=== PATIENT | male | born 1970 | race Caucasian/White ===

== ENCOUNTER → 2017-01-01 | Outpatient (CLI) | payer BC ==
[~2017-01-01] MED LIST: HYDR-5688 PO; IBUP-1050 PO; METH4PAK PO; NRN300 PO; OXYC-57 PO; PROM25TA PO
--- NOTE | 2017-01-01 10:32 | DIAGNOSTIC IMAGING REPORT ---
L-SPINE MIN 4 VIEWS ROUTINE CLINICAL HISTORY: Radiculopathy. COMPARISON: Lumbar spine MRI November 21, 2010. FINDINGS: Alignment of the lumbar spine is anatomic. Vertebral body heights are maintained. There is no fracture or suspicious lesion within the lumbar spine. There is moderate disc space narrowing with osteophytosis and vacuum disc phenomenon at L5-S1. There is mild multilevel facet arthrosis. IMPRESSION: 1. No acute lumbar spine fracture. 2. Moderate degenerative disc disease at L5-S1 with mild to moderate multilevel facet arthrosis. Electronically signed by: Delroy Alonzo M.D. 01/01/2017 10:30 AM Dictated Date/Time: 01/01/2017 10:29 AM
== END | disposition home or self-care (01) ==
LOC: C.RAD 10:00
PROVIDERS: ATTEND Nurse Practitioner Family
DX: M54.16 Radiculopathy, lumbar region (principal)

== ENCOUNTER 2017-02-14 06:57 | Observation (INO) | payer BC ==
[2017-02-14] VITALS (7 sets, daily range): BP systolic 109–130; BP diastolic 68–85; PULSE 53–65; TEMP 36.2–36.6; O2SAT 94–98; Ht 170.2 cm; Wt 83.0 kg
[~2017-02-14] VITALS: Ht 170.2 cm; Wt 83.0 kg
[~2017-02-14 06:57] MED LIST changes: -HYDR-5688 PO; -IBUP-1050 PO; -METH4PAK PO; -NRN300 PO
[2017-02-14] MEDS ORDERED: KETOROLAC TROMETHAMINE 30 MG/ML VIAL IV STA (07:18)
[2017-02-14] MEDS ORDERED: MoRPHine SULFATE 4 MG/ML 1 ML CARP\\VIAL IV STA (07:18)
[2017-02-14] MEDS ORDERED: ONDANSETRON INJ 2 MG/ML 2 ML VIAL IV STA (07:18)
[2017-02-14] MEDS ORDERED: IBUP-1050 PO (07:35)
--- NOTE | 2017-02-14 07:36 | EMERGENCY ROOM VISIT NOTE ---
History Report prepared by Licha: Leigha Ibrahim Under the Supervision of: Dr. Dhiraj Espino M.D. First contact with patient: 07:07 Chief Complaint: BACK PAIN Stated Complaint: BACK PAIN History of Present Illness The patient is a 46 year old male who presents to the Emergency Room with complaints of constant severe back pain beginning 1 month ago. The patient states that he has a history of back pain at L4-L5 and had his disc removed and cleaned previously. He reports that the pain was on the right before and is now on the left. He notes that the pain is now back and feels the same as it did before. The patient states that he has been dealing with this pain for about 1 month but it went away last week and returned yesterday worse than before. The patient reports that he has been following with his family doctor for this pain and has been taking Flexeril and ibuprofen along with going to physical therapy. He reports that his pain is worsened with sitting up and driving and he collapses intermittently with his back spasms. The patient denies any numbness, weakness, fever, incontinence, and abdominal pain. Source of History: patient Onset: 1 month ago Position: back (lower) Symptom Intensity: severe Quality: other (spasms) Timing: constant Modifying Factors (Worsening): other (sitting up and driving) Associated Symptoms: No fevers, No abdominal pain, No weakness, No numbness Note: The patient denies any incontinence. Review of Systems See HPI for pertinent positives & negatives. A total of 10 systems reviewed and were otherwise negative. Past Medical & Surgical Medical Problems: (1) HNP (herniated nucleus pulposus), lumbar (2) Hypertension Old medical records were reviewed. Nurse's notes were reviewed and I agree with. Family History No pertinent family history stated. Social History Smoking Status: Never Smoker Marital Status: Housing Status: lives with significant other Occupation Status: employed Current/Historical Medications Scheduled PRN Ibuprofen (Advil), 800 MG PO Q8 PRN for Pain Allergies Coded Allergies: NSAIDs (Verified Adverse Reaction, Unknown, NO NSAIDS PER DR ROSARIO AND [id number] ADM., 02/14/17) Physical Exam Vital Signs Date Time Temp Pulse Resp B/P (MAP) Pulse Ox O2 Delivery O2 Flow Rate FiO2 02/14/17 10:15 77 18 110/63 97 Room Air 02/14/17 08:15 88 18 137/74 96 Room Air 02/14/17 07:00 36.5 109 18 133/80 96 Room Air Physical Exam General: Uncomfortable appearing middle aged male complaining of back pain. HEENT: Normal cephalic atraumatic. Pupils are equal round and reactive to light. Extraocular movements are intact. Oropharynx is pink with moist mucous membranes. No swelling of the mouth lips or tongue. Neck: Supple with a midline trachea. No meningeal signs or stiffness, no JVD or bruits. No Stridor. Chest: Clear to auscultation bilaterally. No wheezes or rhonchi. No increased work of breathing. Heart: regular rate and rhythm. Abdomen: Soft nontender, nondistended without rebound guarding or rigidity. Extremities: No cyanosis clubbing or edema. No calf tenderness or assymetry Spine/Back. No CVA tenderness. Pain with movement of legs. Skin: Good turgor without rashes. Neurologic exam: Cranial nerves two through 12 are intact. Motor and sensation are intact and symmetrical throughout. Reflexes intact. Medical Decision & Procedures ER Provider Diagnostic Interpretation: Radiology results as stated below per my review and radiologist interpretation: LUMBAR SPINE W/O CONTRAST FINDINGS: Localizer images: Unremarkable. Normal lumbar lordosis. Vertebral bodies demonstrate normal height and alignment. Fatty endplate changes of L4-5 and L5-S1. No bony edema. Disc desiccation at L3-4 through L5-S1. Multilevel degenerative changes further detailed below: L1-2: Normal. L2-3: Disc bulge with central extrusion with slight caudal migration. No significant spinal canal or neural foraminal narrowing. L3-4: Normal. L4-5: Disc bulge with left paracentral disc extrusion with caudal migration. The disc fragment measures 10 x 7 mm. This effaces the left lateral recess with mass effect on the transiting left L5 nerve root. Disc bulge and facet arthropathy result in mild right and moderate left neural foraminal narrowing. L5-S1: Disc bulge abuts the exiting left L5 nerve root. In combination with facet arthropathy, mild right and moderate left neural foraminal narrowing noted. No significant spinal canal narrowing. Spinal cord ends in good position at the superior endplate of L1. Cauda equina normal in morphology. Paraspinal soft tissues within normal limits. IMPRESSION: 1. Left paracentral disc extrusion at L4-5 with caudal migration. This exerts mass effect on the transiting left L5 nerve root. Further mass effect on the left L5 nerve root at the level of the left L5-S1 neural foramen secondary to disc bulge and facet arthropathy. 2. Smaller central disc extrusion with caudal migration at L2-3. No significant mass effect on the nerve roots at this level. 3. Additional degenerative changes above. Electronically signed by: Ganesh Almanzar M.D. 02/14/2017 10:26 AM Dictated Date/Time: 02/14/2017 10:18 AM ORBITS FOR MRI FINDINGS: No radiopaque foreign body projects over the orbits. Bony orbits grossly intact. Paranasal sinuses grossly clear. Visualized portion of the calvarium intact. IMPRESSION: No intraorbital metallic foreign body to preclude MRI exam. Electronically signed by: Ganesh Almanzar M.D. 02/14/2017 8:17 AM Dictated Date/Time: 02/14/2017 8:17 AM Laboratory Results 02/14/17 07:35 Red Blood Count 4.66, Mean Corpuscular Volume 89.7, Mean Corpuscular Hemoglobin 30.7, Mean Corpuscular Hemoglobin Concent 34.2, Mean Platelet Volume 9.7, Neutrophils (%) (Auto) 76.0, Lymphocytes (%) (Auto) 13.5, Monocytes (%) (Auto) 7.5, Eosinophils (%) (Auto) 2.6, Basophils (%) (Auto) 0.3, Neutrophils # (Auto) 5.56, Lymphocytes # (Auto) 0.99, Monocytes # (Auto) 0.55, Eosinophils # (Auto) 0.19, Basophils # (Auto) 0.02 02/14/17 07:35 Test 02/14/17 07:35 White Blood Count 7.32 K/uL (4.8-10.8) Red Blood Count 4.66 M/uL (4.7-6.1) Hemoglobin 14.3 g/dL (14.0-18.0) Hematocrit 41.8 % (42-52) Mean Corpuscular Volume 89.7 fL (80-100) Mean Corpuscular Hemoglobin 30.7 pg (25-34) Mean Corpuscular Hemoglobin Concent 34.2 g/dl (32-36) Platelet Count 238 K/uL (130-400) Mean Platelet Volume 9.7 fL (7.4-10.4) Neutrophils (%) (Auto) 76.0 % Lymphocytes (%) (Auto) 13.5 % Monocytes (%) (Auto) 7.5 % Eosinophils (%) (Auto) 2.6 % Basophils (%) (Auto) 0.3 % Neutrophils # (Auto) 5.56 K/uL (1.4-6.5) Lymphocytes # (Auto) 0.99 K/uL (1.2-3.4) Monocytes # (Auto) 0.55 K/uL (0.11-0.59) Eosinophils # (Auto) 0.19 K/uL (0-0.5) Basophils # (Auto) 0.02 K/uL (0-0.2) RDW Standard Deviation 42.1 fL (36.4-46.3) RDW Coefficient of Variation 12.8 % (11.5-14.5) Immature Granulocyte % (Auto) 0.1 % Immature Granulocyte # (Auto) 0.01 K/uL (0.00-0.02) Anion Gap 7.0 mmol/L (3-11) Est Creatinine Clear Calc Drug Dose 93.6 ml/min Estimated GFR () 103.4 Estimated GFR (Non- 89.2 BUN/Creatinine Ratio 10.1 (10-20) Calcium Level 9.2 mg/dl (8.5-10.1) Laboratory studies as stated above per my review. Medications Administered Medications (Trade) Dose Ordered Sig/Adonay Route Start Time Stop Time Status Last Admin Dose Admin Ketorolac Tromethamine (Toradol Inj) 30 mg NOW STAT IV 02/14/17 07:18 02/14/17 07:21 DC 02/14/17 07:41 30 MG Ondansetron HCl (Zofran Inj) 4 mg NOW STAT IV 02/14/17 07:18 02/14/17 07:21 DC 02/14/17 07:41 4 MG Morphine Sulfate (MoRPHine SULFATE INJ) 4 mg NOW STAT IV 02/14/17 07:18 02/14/17 07:21 DC 02/14/17 07:40 4 MG Hydromorphone HCl (Dilaudid Inj) 1 mg NOW STAT IV 02/14/17 10:33 02/14/17 10:34 DC 02/14/17 11:17 1 MG Hydromorphone HCl (Dilaudid Chief Analytics Officer) Dilaudid FABRICATION SPECIALIST 0.25 mg IV q... PRN PRN IV 02/14/17 11:15 02/14/17 15:05 DC 02/14/17 14:56 0.25 MG Lactated Ringer's 1,000 ml @ 40 mls/hr Q24H IV 02/14/17 11:15 02/14/17 15:05 DC 02/14/17 13:29 40 MLS/HR ED Course 0707: Past medical records reviewed. The patient was evaluated in room B12B, and a complete history and physical examination were performed. 0718: Morphine Sufate 4mg IV, Zofran Inj 4mg IV, Toradol Inj 30mg IV. 1033: Dilaudid Inj 1mg IV. 1044: I spoke to Kiana Zarate PA-C about the patients case. She will call me back. 1052: I reevaluated and updated the patient. He is still in pain and does not think that he can go home. 1101: I spoke to Kiana Zarate PA-C. She will evaluate the patient. 1116: Upon reevaluation, the patient is doing well. I discussed the results and treatment plan with the patient. He verbalized agreement of the treatment plan. The patient will be evaluated for further management. Medical Decision Differentials include, but are not limited to; lumbar disc disease, trauma, infection, electrolyte or metabolic abnormality. This patient comes in as described above. Placed in room B12. He is having low back pain readouts left leg he has a history having had disc [place] [address] Rosario that was causing pain in his right leg. This is been off about a month but got significantly worse overnight. He's had no fever or chills. He has nothing to suggest cauda equina syndrome. He has significant pain with movement of the left leg. There are no significant neurologic deficits. IV access established was given IV Toradol 30 mg, morphine 4 mg IV, Zofran 4 mg IV. Although NSAIDs are listed as allergies had these before and has been taking them all week and thus is not allergic. Blood work was obtained and I did order an MRI of his back. He has no white count or fever to suggest infection. He has no acute electrolyte or metabolic abnormalities. He did require additional IV pain medication was given a milligram of IV Dilaudid. His MRI does show a large disc protrusion on the left compromise in the lateral foramen on that side. I did discuss the case with Dr. Marlene Mosley's PA. I do think the patient needs to be admitted for pain management and possibly surgery. She has called in some orders and will admit the patient. Medication Reconcilliation Current Medication List: was personally reviewed by me Blood Pressure Screening Patient's blood pressure: Elevated blood pressure Blood pressure disposition: Elevated BP felt to be situational Consults Time Called: 1055 Consulting Physician: Kiana Zarate PA-C - [facility] Returned Call: 1101 I spoke to Kiana Zarate PA-C of [facility]. She will evaluate the patient. Impression Primary Impression: Lumbar disc disease Additional Impressions: Sciatica Intractable back pain Scribe Attestation The scribe's documentation has been prepared under my direction and personally reviewed by me in its entirety. I confirm that the note above accurately reflects all work, treatment, procedures, and medical decision making performed by me. Departure Information Referrals Yesika Wells C.R.N.P. (PCP) Patient Instructions My [facility] Problem Qualifiers
[2017-02-14 08:05] LABS: BASO % 0.3 %; BASO ABS # 0.02 K/uL (0-0.2); COMPLETE YES; EOS % 2.6 %; HEMATOCRIT 41.8 % (42-52); IG% 0.1 %; LYMPH % 13.5 %; LYMPH ABS # 0.99 K/uL (1.2-3.4); MEAN CELL VOLUME 89.7 fL (80-100); MEAN CORPUSCULAR HEMOGLOBIN 30.7 pg (25-34); MEAN CORPUSCULAR HGB CONC 34.2 g/dl (32-36); MEAN PLATELET VOLUME 9.7 fL (7.4-10.4); MONO % 7.5 %; PLATELET COUNT 238 K/uL (130-400); RED BLOOD COUNT 4.66 M/uL (4.7-6.1); WHITE BLOOD COUNT 7.32 K/uL (4.8-10.8)
[2017-02-14 08:08] LABS: BUN/CREATININE RATIO 10.1 (10-20); CALCIUM 9.2 mg/dl (8.5-10.1); POTASSIUM 3.9 mmol/L (3.5-5.1)
--- NOTE | 2017-02-14 08:19 | DIAGNOSTIC IMAGING REPORT ---
ORBITS FOR MRI CLINICAL HISTORY: 46 years-old Male presenting with MRI clearance of the orbits. TECHNIQUE: 3 views of the orbits were obtained. COMPARISON: None. FINDINGS: No radiopaque foreign body projects over the orbits. Bony orbits grossly intact. Paranasal sinuses grossly clear. Visualized portion of the calvarium intact. IMPRESSION: No intraorbital metallic foreign body to preclude MRI exam. Electronically signed by: Ganesh Almanzar M.D. 02/14/2017 8:17 AM Dictated Date/Time: 02/14/2017 8:17 AM
--- NOTE | 2017-02-14 10:27 | DIAGNOSTIC IMAGING REPORT ---
LUMBAR SPINE W/O CONTRAST CLINICAL HISTORY: 46 years-old Male presenting with eval for disc disease, lower back pain radiating to the left lower extremity. TECHNIQUE: Multisequence, multiplanar MR imaging of the lumbar spine was performed without the use of intravenous contrast. IV contrast: None. COMPARISON: Plain radiographs of the lumbar spine from 01/01/2017. FINDINGS: Localizer images: Unremarkable. Normal lumbar lordosis. Vertebral bodies demonstrate normal height and alignment. Fatty endplate changes of L4-5 and L5-S1. No bony edema. Disc desiccation at L3-4 through L5-S1. Multilevel degenerative changes further detailed below: L1-2: Normal. L2-3: Disc bulge with central extrusion with slight caudal migration. No significant spinal canal or neural foraminal narrowing. L3-4: Normal. L4-5: Disc bulge with left paracentral disc extrusion with caudal migration. The disc fragment measures 10 x 7 mm. This effaces the left lateral recess with mass effect on the transiting left L5 nerve root. Disc bulge and facet arthropathy result in mild right and moderate left neural foraminal narrowing. L5-S1: Disc bulge abuts the exiting left L5 nerve root. In combination with facet arthropathy, mild right and moderate left neural foraminal narrowing noted. No significant spinal canal narrowing. Spinal cord ends in good position at the superior endplate of L1. Cauda equina normal in morphology. Paraspinal soft tissues within normal limits. IMPRESSION: 1. Left paracentral disc extrusion at L4-5 with caudal migration. This exerts mass effect on the transiting left L5 nerve root. Further mass effect on the left L5 nerve root at the level of the left L5-S1 neural foramen secondary to disc bulge and facet arthropathy. 2. Smaller central disc extrusion with caudal migration at L2-3. No significant mass effect on the nerve roots at this level. 3. Additional degenerative changes above. Electronically signed by: Ganesh Almanzar M.D. 02/14/2017 10:26 AM Dictated Date/Time: 02/14/2017 10:18 AM
[2017-02-14] MEDS ORDERED: HYDROmorphone INJ 1 MG/ML SYR IV STA (10:33)
[2017-02-14] MEDS ORDERED: ONDANSETRON INJ 2 MG/ML 2 ML VIAL IV PRN ×2 (11:15→17:15)
[2017-02-14] MEDS: HYDROmorphone HCL 0.5MG/ML 50 ML CASSETTE IV PRN ×3 (13:29→23:18)
[2017-02-14] MEDS: LACTATED RINGER'S 1000ML 1,000 ML IV SCH (13:29)
--- NOTE | 2017-02-14 15:03 | History and Physical ---
History & Physical Date & Time of Service: Feb 14, 2017 at 14:57 Chief Complaint: Herniated Nucleus Pulposus Lumbar Spine Primary Care Physician: Yesika Wells C.R.N.P. History of Present Illness Source: patient The 46-year-old male well known to our practice. He is status post laminectomy from [address] Rosario. He presents to the emergency room today because of increased back and left leg pain. He states his symptoms started a month ago. No precipitating accident trauma or fall. His pain involves the back raised on the left buttock posterior thigh posterior calf to his foot. Right leg is asymptomatic. Denies bowel or bladder changes. Sitting exacerbates his pain. He is most comfortable sling as he is up and moving. He reports he has trialed physical therapy without relief. He was given oral steroids without relief. He had to tramadol and Flexeril again which were not providing any significant relief. Past Medical/Surgical History Medical Problems: (1) Hypertension Status: Chronic Social History Smoking Status: Never Smoker Marital Status: Occupational Status: employed Immunizations History of Influenza Vaccine: Yes Influenza Vaccine Date: Mar 13, 2008 History of Tetanus Vaccine?: Unknown Tetanus Immunization Date: Jun 30, 2002 History of Pneumococcal: No History of Hepatitis B Vaccine: Yes Hepatitis Immunization Date: Jul 28, 2001 Multi-Drug Resistant Organisms History of MDRO: No Allergies Coded Allergies: NSAIDs (Verified Adverse Reaction, Unknown, NO NSAIDS PER DR ROSARIO AND [id number] ADM., 02/14/17) Home Medications Scheduled PRN Ibuprofen (Advil), 800 MG PO Q8 PRN for Pain Review of Systems Back pain Left leg pain Physical Exam Vital Signs Date Time Temp Pulse Resp B/P (MAP) Pulse Ox O2 Delivery O2 Flow Rate FiO2 02/14/17 13:33 36.4 55 18 121/74 (90) 96 Room Air 02/14/17 13:05 Room Air 02/14/17 12:41 36.6 60 18 130/73 (92) 94 Room Air 02/14/17 12:00 60 20 125/73 95 Room Air 02/14/17 11:19 87 20 125/73 97 Room Air 02/14/17 10:15 77 18 110/63 97 Room Air 02/14/17 08:15 88 18 137/74 96 Room Air 02/14/17 07:00 36.5 109 18 133/80 96 Room Air General Appearance: WD/WN, no apparent distress Head: normocephalic Eyes: normal inspection ENT: normal ENT inspection, hearing grossly normal Neck: supple Respiratory/Chest: no respiratory distress, no accessory muscle use Cardiovascular: regular rate, rhythm Abdomen/GI: non tender, soft Back: normal inspection Extremities/Musculoskelatal: no calf tenderness, normal capillary refill, normal range of motion, pelvis stable Neurologic/Psych: no motor/sensory deficits, oriented x 3 Skin: normal color, warm/dry Lymphatic: no adenopathy Lower extremity neuro vascular intact. Positive tension sign on the left. Negative on the right. Diagnostics Laboratory Results Results Past 24 Hours Test 02/14/17 07:35 Range/Units White Blood Count 7.32 4.8-10.8 K/uL Red Blood Count 4.66 4.7-6.1 M/uL Hemoglobin 14.3 14.0-18.0 g/dL Hematocrit 41.8 42-52 % Mean Corpuscular Volume 89.7 80-100 fL Mean Corpuscular Hemoglobin 30.7 25-34 pg Mean Corpuscular Hemoglobin Concent 34.2 32-36 g/dl Platelet Count 238 130-400 K/uL Mean Platelet Volume 9.7 7.4-10.4 fL Neutrophils (%) (Auto) 76.0 % Lymphocytes (%) (Auto) 13.5 % Monocytes (%) (Auto) 7.5 % Eosinophils (%) (Auto) 2.6 % Basophils (%) (Auto) 0.3 % Neutrophils # (Auto) 5.56 1.4-6.5 K/uL Lymphocytes # (Auto) 0.99 1.2-3.4 K/uL Monocytes # (Auto) 0.55 0.11-0.59 K/uL Eosinophils # (Auto) 0.19 0-0.5 K/uL Basophils # (Auto) 0.02 0-0.2 K/uL RDW Standard Deviation 42.1 36.4-46.3 fL RDW Coefficient of Variation 12.8 11.5-14.5 % Immature Granulocyte % (Auto) 0.1 % Immature Granulocyte # (Auto) 0.01 0.00-0.02 K/uL Sodium Level 140 136-145 mmol/L Potassium Level 3.9 3.5-5.1 mmol/L Chloride Level 108 98-107 mmol/L Carbon Dioxide Level 25 21-32 mmol/L Anion Gap 7.0 3-11 mmol/L Blood Urea Nitrogen 10 7-18 mg/dl Creatinine 1.00 0.60-1.40 mg/dl Est Creatinine Clear Calc Drug Dose 93.6 ml/min Estimated GFR () 103.4 Estimated GFR (Non- 89.2 BUN/Creatinine Ratio 10.1 10-20 Random Glucose 101 70-99 mg/dl Calcium Level 9.2 8.5-10.1 mg/dl Diagnostic Radiology Patient Name: LANCE CARPENTER II Unit Number: [id number] Dictated: 02/14/171017 Transcribed: 02/14/171017 PBS Printed Date/Time: [~ rep prt dt]/[~ rep prt tm] [~ rep ct labl] - [~ rep ct ivnm] [facility] [place] [address] Dictated: 02/14/171017 Transcribed: 02/14/171017 PBS Printed Date/Time: [~ rep prt dt]/[~ rep prt tm] [~ rep ct labl] - [~ rep ct ivnm] Patient: LANCE CARPENTER II Address1: [address] [place] [address] Rec: [id number] Address2: Acct ID: [id number] [facility] Zip: [place] [address] Date: 1970 Sex: M Room/Bed: Ref Phy: Yesika Wells, C.R.N.P. SC: GABRIELE Att Phy: Report #: [id number] [facility] Phy: Yesika Wells, C.R.N.P. Test: LSWOC Admit Phy: Multi Slide Machine Tender: BREANA Interpreting Phy: Ganesh Almanzar MD Diagnosis: BACK PAIN Ordering Phy: Dhiraj Espino M.D. Service Date: 02/14/17 Admit Date: 02/14/17 MNE: [id number] CONF: DICTATED BY: Ganesh Almanzar MD]] CC: Dhiraj Espino M.D. Schrack, Shari A., C.R.N.P. Endcc: [~ rep ct add3]] LUMBAR SPINE W/O CONTRAST CLINICAL HISTORY: 46 years-old Male presenting with eval for disc disease, lower back pain radiating to the left lower extremity. TECHNIQUE: Multisequence, multiplanar MR imaging of the lumbar spine was performed without the use of intravenous contrast. IV contrast: None. COMPARISON: Plain radiographs of the lumbar spine from 01/01/2017. FINDINGS: Localizer images: Unremarkable. Normal lumbar lordosis. Vertebral bodies demonstrate normal height and alignment. Fatty endplate changes of L4-5 and L5-S1. No bony edema. Disc desiccation at L3-4 through L5-S1. Multilevel degenerative changes further detailed below: L1-2: Normal. L2-3: Disc bulge with central extrusion with slight caudal migration. No significant spinal canal or neural foraminal narrowing. L3-4: Normal. L4-5: Disc bulge with left paracentral disc extrusion with caudal migration. The disc fragment measures 10 x 7 mm. This effaces the left lateral recess with mass effect on the transiting left L5 nerve root. Disc bulge and facet arthropathy result in mild right and moderate left neural foraminal narrowing. L5-S1: Disc bulge abuts the exiting left L5 nerve root. In combination with facet arthropathy, mild right and moderate left neural foraminal narrowing noted. No significant spinal canal narrowing. Spinal cord ends in good position at the superior endplate of L1. Cauda equina normal in morphology. Paraspinal soft tissues within normal limits. IMPRESSION: 1. Left paracentral disc extrusion at L4-5 with caudal migration. This exerts mass effect on the transiting left L5 nerve root. Further mass effect on the left L5 nerve root at the level of the left L5-S1 neural foramen secondary to disc bulge and facet arthropathy. 2. Smaller central disc extrusion with caudal migration at L2-3. No significant mass effect on the nerve roots at this level. 3. Additional degenerative changes above. Electronically signed by: Ganesh Almanzar M.D. 02/14/2017 10:26 AM Dictated Date/Time: 02/14/2017 10:18 AM The status of this report is Signed. Draft = Not yet reviewed or approved by Radiologist. Signed = Reviewed and approved by Radiologist. <AttendingPhy></AttendingPhy> <FamilyPhy>Yesika Wells C.R.NGrupo</FamilyPhy> <PrimaryPhy>Yesika Wells C.R.N.P.</PrimaryPhy> <UnitNumber>[id number]</ UnitNumber> <VisitNumber>[id number]</VisitNumber> <PatientName>LANCE CARPENTER II</PatientName> <DateOfBirth>1970</DateOfBirth> <Location>[facility]</Location > <ServiceDate>02/14/17</ServiceDate> <MNE>ESINDI</MNE> <OrderingPhy>Dhiraj Espino M.D.</OrderingPhy> <OrderingPhyMNE>f rep ord dr yun</OrderingPhyMNE> < DictatingPhyMNE>f rep dict dr yun</DictatingPhyMNE> <CCListMNE>f rep ct mynore</ CCListMNE> <AdmittingPhyMNE>f pt admit dr yun</AdmittingPhyMNE> <AttendingPhyMNE >f pt attend dr yun</AttendingPhyMNE> <ConsultingPhyMNE>f pt consult dr yun</ConsultingPhyMNE> <FamilyPhyMNE>f pt fam dr yun</FamilyPhyMNE> <OtherPhyMNE>f pt other dr yun</OtherPhyMNE> < PrimaryPhyMNE>f pt prim care dr yun</PrimaryPhyMNE> <ReferringPhyMNE>f pt referring dr yun</ReferringPhyMNE> Impression Assessment and Plan Assessment: HNP L4 5 on the left Significant degenerative disc disease L5-S1 Broad based disc bulge L5-S1 Neural foraminal stenosis L4 5, L5-S1 left greater than right Plan patient felt he was unable to go home because of his pain. He was therefore admitted to Dr. Rosario service through the emergency room. Options were reviewed with the patient including pain management injections versus surgical intervention. Surgery would require lumbar decompression fusion L4 5, L5-S1. At this point in time patient wants to trial epidural injections. I will make him nothing by mouth after midnight. We will consult the pain management group.: Level of Care Med/Surg Advanced Directives Existing Living Will: No Existing Power of Shredder Tender Peat: No VTE Prophylaxis VTE Risk Assessment Done? Y/N: Yes Risk Level: Low Given or contraindicated: Kenyatta Andrade, SCD's
[2017-02-14] MEDS ORDERED: IV FLUIDS COMPLETED PRN (15:30)
[2017-02-14] MEDS ORDERED: NURSING VERBAL MED ORDER ONE (17:00)
[2017-02-14] MEDS ORDERED: SODIUM CHLORIDE 0.9% 1000ML 1,000 ML IV SCH (17:15)
[2017-02-14] MEDS ORDERED: NALOXONE HCL 0.4 MG/1 ML VIAL/CARP IV PRN (17:15)
--- NOTE | 2017-02-14 17:22 | Medical Consult ---
Consultation Date of Consultation: Feb 14, 2017. Attending Physician: Bay Rosario D.O. Reason for Consultation: Pre-op assessment History of Present Illness 46 y/o M who was admitted earlier today to ortho service for likely laminectomy. Pt had been having worsening LBP with radiation into his LLE for about 1 month. Nothing seems to be helping his pain so he came to the ED. He has hx of laminectomy with Dr. Rosario in 2010. No accident or fall. Right leg is WNL. No bowel or bladder changes. Pain is worse with sitting and improves somewhat with moving around. Pt has attempted conservative management with PT, PO steroids, tramadol, and flexeril. Pt states that other than his pain issue, he is in good health. HTN is listed in the EHR, however pt denies any hx of HTN or medication for this issue. He used to have CHRISTY, however he was able to lose 55-60lbs and this is no longer an active health problem. He takes no medications. 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 He has been somewhat limited by his back pain, but no issues with SOB or chest pain or easily fatiguing. His states "he is always on the go". He states he can take multiple flights of stairs without issue. He had no issues with his prior surgery in 2010. Pt denies fever, SOB, chest pain, abd pain, n/v/c/d, LE pain or swelling. Past Medical/Surgical History Medical Problems: (1) Intractable back pain Status: Acute (2) Lumbar disc disease Status: Acute (3) Sciatica Status: Acute CHRISTY resolved with weight loss Family History Father hx of [place] x4 Social History Smoking Status: Never Smoker Alcohol Use: none Drug Use: none Marital Status: Housing Status: lives with significant other Occupation Status: employed Allergies Coded Allergies: NSAIDs (Verified Adverse Reaction, Unknown, NO NSAIDS PER DR ROSARIO AND [id number] ADM., 02/14/17) Current Inpatient Medications Current Inpatient Medications Medications (Trade) Dose Ordered Sig/Adonay Route Start Time Stop Time Status Last Admin Dose Admin Hydromorphone HCl (Dilaudid Clinical Education Specialist) Dilaudid CHEMICAL PROCESS ENGINEER 0.25 mg IV q... PRN PRN IV 02/14/17 11:15 02/28/17 11:14 02/14/17 14:56 0.25 MG Lactated Ringer's 1,000 ml @ 40 mls/hr Q24H IV 02/14/17 11:15 03/16/17 11:14 02/14/17 13:29 40 MLS/HR Docusate Sodium (coLACE CAP) 100 mg BID PO 02/14/17 21:00 03/16/17 20:59 Cefazolin Sodium 60 ml @ 100 mls/hr PREOP IV 02/15/17 06:00 02/15/17 18:00 Miscellaneous (Iv Fluids Completed) 1 ea PRN PRN N/A 02/14/17 15:30 02/14/18 15:29 Ondansetron HCl (Zofran Inj) 4 mg Q6H PRN IV 02/14/17 17:15 03/16/17 17:14 Naloxone HCl (Narcan Inj) 0.1 mg Q5M PRN IV 02/14/17 17:15 02/28/17 17:14 Sodium Chloride 1,000 ml @ 15 mls/hr Q24H IV 02/14/17 17:15 03/16/17 17:14 Review of Systems Pertinent positives and negatives reviewed in HPI--all others negative Physical Exam Date Time Temp Pulse Resp B/P (MAP) Pulse Ox O2 Delivery O2 Flow Rate FiO2 02/14/17 15:24 36.2 53 16 120/85 (97) 94 Room Air 02/14/17 14:30 36.5 59 17 117/78 (91) 98 Room Air 02/14/17 13:33 36.4 55 18 121/74 (90) 96 Room Air 02/14/17 13:05 Room Air 02/14/17 12:41 36.6 60 18 130/73 (92) 94 Room Air 02/14/17 12:00 60 20 125/73 95 Room Air 02/14/17 11:19 87 20 125/73 97 Room Air 02/14/17 10:15 77 18 110/63 97 Room Air 02/14/17 08:15 88 18 137/74 96 Room Air 02/14/17 07:00 36.5 109 18 133/80 96 Room Air General Appearance: WD/WN, no apparent distress Head: normocephalic, atraumatic Eyes: normal inspection, EOMI ENT: hearing grossly normal Neck: supple Respiratory/Chest: normal breath sounds, no respiratory distress Cardiovascular: regular rate, rhythm, no edema Abdomen/GI: non tender, soft Extremities/Musculoskelatal: no calf tenderness, no pedal edema Neurologic/Psych: alert, normal mood/affect, oriented x 3 Skin: normal color, warm/dry Laboratory Results Last 24 Hours Test 02/14/17 07:35 White Blood Count 7.32 K/uL Red Blood Count 4.66 M/uL Hemoglobin 14.3 g/dL Hematocrit 41.8 % Mean Corpuscular Volume 89.7 fL Mean Corpuscular Hemoglobin 30.7 pg Mean Corpuscular Hemoglobin Concent 34.2 g/dl Platelet Count 238 K/uL Mean Platelet Volume 9.7 fL Neutrophils (%) (Auto) 76.0 % Lymphocytes (%) (Auto) 13.5 % Monocytes (%) (Auto) 7.5 % Eosinophils (%) (Auto) 2.6 % Basophils (%) (Auto) 0.3 % Neutrophils # (Auto) 5.56 K/uL Lymphocytes # (Auto) 0.99 K/uL Monocytes # (Auto) 0.55 K/uL Eosinophils # (Auto) 0.19 K/uL Basophils # (Auto) 0.02 K/uL RDW Standard Deviation 42.1 fL RDW Coefficient of Variation 12.8 % Immature Granulocyte % (Auto) 0.1 % Immature Granulocyte # (Auto) 0.01 K/uL Sodium Level 140 mmol/L Potassium Level 3.9 mmol/L Chloride Level 108 mmol/L Carbon Dioxide Level 25 mmol/L Anion Gap 7.0 mmol/L Blood Urea Nitrogen 10 mg/dl Creatinine 1.00 mg/dl Est Creatinine Clear Calc Drug Dose 93.6 ml/min Estimated GFR () 103.4 Estimated GFR (Non- 89.2 BUN/Creatinine Ratio 10.1 Random Glucose 101 mg/dl Calcium Level 9.2 mg/dl Assessment & Plan 46 y/o M who was admitted on 02/14 for spinal surgery Herniated discs: as noted on MRI As per ortho Failed outpt management EKG NSR CXR pending CBC, PRP WNL VSS Pt is quite healthy and active at baseline. He is an acceptable risk for the OR.
--- NOTE | 2017-02-14 17:31 | DIAGNOSTIC IMAGING REPORT ---
CHEST 2 VIEWS ROUTINE CLINICAL HISTORY: 46 years-old Male presenting with pre-op. TECHNIQUE: PA and lateral views of the chest were obtained. COMPARISON: 04/13/2016. FINDINGS: Cardiomediastinal silhouette normal. Lungs and pleural spaces clear. Osseous structures normal. Upper abdomen normal. IMPRESSION: 1. No acute cardiopulmonary disease. Electronically signed by: Ganesh Almanzar M.D. 02/14/2017 5:30 PM Dictated Date/Time: 02/14/2017 5:29 PM
[2017-02-14] MEDS: DOCUSATE SODIUM 100 MG CAP PO SCH (20:01)
[2017-02-15] MEDS ORDERED: CEFAZOLIN IV 1,000 MG in DEXTROSE 5% 50ML 50 ML IV SCH (06:00)
[2017-02-15] MEDS ORDERED: CEFAZOLIN 2000 MG/60 ML D5W IV SCH (06:00)
[2017-02-15 07:12] VITALS: BP 116/69; PULSE 67; TEMP 36.7; O2SAT 96
[2017-02-15] MEDS: HYDROmorphone HCL 0.5MG/ML 50 ML CASSETTE IV PRN (07:18)
[2017-02-15] MEDS ORDERED: METHYLPREDNISOLONE 4MG TAB, 6 DAY TAPER PO SCH (08:15)
[2017-02-15] MEDS: DOCUSATE SODIUM 100 MG CAP PO SCH (08:59)
--- NOTE | 2017-02-15 09:43 | Pain Management Consultation ---
Pain Management Consultation Date of Consultation Feb 15, 2017. Reason for Consultation Evaluate for interventional procedure for lumbar radiculitis. Pain Location 1 - Left leg radicular pain. History Mr. Sean Sibley II is a 46-year-old male admitted to [facility] for experiencing left lower extremity radicular symptoms. He has undergone previous lumbar spine surgery and was symptom free up until recently. He reports that without any specific inciting event, he started experiencing left leg pain. He characterizes the pain as burning sensation that starts from the left buttock and radiates into the left posterior lateral aspect of his distal legs up to the ankle. He rates the pain is 8/10 when severe and 2/10 when minimal. He is bright with pain-free when he is standing up and ambulating or when he is laying in supine immobile position. However, when he attempts to sit up or leans forward, he experiences burning sensation all the way down to his left ankle. Symptoms occur with activities request daily living. Prior to his arriving to the emergency room, he had used tramadol and OTC anti- inflammatory agents as well as Flexeril with minimal efficacy. Currently he is getting IV hydromorphone, but has used minimal dosages so far. He denies any bowel or bladder incontinence, saddle anesthesia, numbness or weakness in the left lower extremity. Denies any constitutional symptoms, recent weight loss, or previous history malignancy. He was evaluated by orthopedic spine surgery service and her request was made to consider interventional therapy prior to considering surgery. Past Medical: Hypertension. History of lumbar disc disease and radicular pain. Past Surgical: History lumbar spine surgery. Social / Work History Smokeless Tobacco Use: No Alcohol Use: none Drug Use: none Marital Status: Occupation: employed Allergies Coded Allergies: NSAIDs (Verified Adverse Reaction, Unknown, NO NSAIDS PER DR WERNER AND [id number] ADM., 02/14/17) Medications Current Inpatient Medications Medications (Trade) Dose Ordered Sig/Adonay Route Start Time Stop Time Status Last Admin Dose Admin Hydromorphone HCl (Dilaudid Captain Fishing Vessel) Dilaudid COMPOUNDING TECHNICIAN 0.25 mg IV q... PRN PRN IV 02/14/17 11:15 02/28/17 11:14 02/15/17 07:18 0.25 MG Lactated Ringer's 1,000 ml @ 40 mls/hr Q24H IV 02/14/17 11:15 03/16/17 11:14 02/14/17 13:29 40 MLS/HR Docusate Sodium (coLACE CAP) 100 mg BID PO 02/14/17 21:00 03/16/17 20:59 02/14/17 20:01 100 MG Cefazolin Sodium 60 ml @ 100 mls/hr PREOP IV 02/15/17 06:00 02/15/17 18:00 Miscellaneous (Iv Fluids Completed) 1 ea PRN PRN N/A 02/14/17 15:30 02/14/18 15:29 Ondansetron HCl (Zofran Inj) 4 mg Q6H PRN IV 02/14/17 17:15 03/16/17 17:14 02/14/17 17:23 4 MG Naloxone HCl (Narcan Inj) 0.1 mg Q5M PRN IV 02/14/17 17:15 02/28/17 17:14 Sodium Chloride 1,000 ml @ 15 mls/hr Q24H IV 02/14/17 17:15 03/16/17 17:14 Review of Systems Denies any recent history of fever, night sweats, unexplained weight loss, or constitutional symptoms. Otherwise, 8 point review of system has been reported to be negative. Physical Exam Height & Weight: Height 5 feet, 7.00 inches. Weight 83.000 (Kilograms) 182 (Pounds) Last Vital Signs Documentation Date Time Temp Pulse Resp B/P (MAP) Pulse Ox O2 Delivery O2 Flow Rate FiO2 02/15/17 07:12 36.7 67 14 116/69 (85) 96 Room Air Laboratory Laboratory Results (Last CBC): 02/14/17 07:35 Red Blood Count 4.66 L, Mean Corpuscular Volume 89.7, Mean Corpuscular Hemoglobin 30.7, Mean Corpuscular Hemoglobin Concent 34.2, Mean Platelet Volume 9.7, Neutrophils (%) (Auto) 76.0, Lymphocytes (%) (Auto) 13.5, Monocytes (%) ( Auto) 7.5, Eosinophils (%) (Auto) 2.6, Basophils (%) (Auto) 0.3, Neutrophils # ( Auto) 5.56, Lymphocytes # (Auto) 0.99 L, Monocytes # (Auto) 0.55, Eosinophils # (Auto) 0.19, Basophils # (Auto) 0.02 Imaging MRI: reports reviewed MRI Findings IMPRESSION: 1. Left paracentral disc extrusion at L4-5 with caudal migration. This exerts mass effect on the transiting left L5 nerve root. Further mass effect on the left L5 nerve root at the level of the left L5-S1 neural foramen secondary to disc bulge and facet arthropathy. 2. Smaller central disc extrusion with caudal migration at L2-3. No significant mass effect on the nerve roots at this level. 3. Additional degenerative changes above. Electronically signed by: Ganesh Almanzar M.D. 02/14/2017 10:26 AM Dictated Date/Time: 02/14/2017 10:18 AM [place] Drug Monitoring Program Search Results: patient reviewed within database, no issues identified Opioid Risk Assessment Risk assessment performed, no issues identified Assessment 1. Individual disc disorder with left lower extremity radicular pain. L4/L5 disc protrusion Recommendations 1. Mr. Sibley and his spouse were advised that he is a candidate for lumbar transforaminal epidural steroid injection L4-L5 on the left side. Inherent risks, benefits and alternatives discussed. He would like to proceed. We will arrange for this procedure as it is possible. Fluoroscopy suite is not available today. Ultimately, he can be discharged on gabapentin, Medrol Dosepak and hydrocodone and have the procedure done as an outpatient. 2. Recommend gabapentin 300 minutes by mouth 3 times a day. 3. Recommend hydrocodone 7.5 every 6 hours when necessary. 4. Orders written.
[2017-02-15] MEDS: LACTATED RINGER'S 1000ML 1,000 ML IV SCH (10:58)
[2017-02-15] MEDS: GABAPENTIN 300 MG CAP PO SCH ×2 (11:03→13:22)
[2017-02-15] MEDS ORDERED: HYDR-5688 PO (11:09)
[2017-02-15] MEDS ORDERED: NRN300 PO (11:09)
--- NOTE | 2017-02-15 11:10 | Discharge Instructions ---
Discharge Instructions Date of Service Feb 15, 2017. Admission Reason for Admission: Herniated Nucleus Pulposus Lumbar Spine Discharge Discharge Diagnosis / Problem: herniated disk Discharge Goals Goal(s): Improve function Activity Recommendations Activity Limitations: as noted below Exercise/Sports Limitations: gradually increase as tolerated Shower/Bathe: no limitations Driving or Machine Use: resume 3 days after discharge . Current Hospital Diet Patient's current hospital diet: Regular Diet Discharge Diet Recommended Diet: Regular Diet Pending Studies Studies pending at discharge: no Medical Emergencies . Who to Call and When: Medical Emergencies: If at any time you feel your situation is an emergency, please call 911 immediately. . Non-Emergent Contact Non-Emergency issues call your: Primary Care Provider . "Provider Documentation" section prepared by Bay Rosario. . VTE Core Measure Inpt VTE Proph given/why not?: Kenyatta Andrade, SCD's
--- NOTE | 2017-02-15 11:14 | Hospitalist Progress Note ---
Hospitalist Progress Note Date of Service Feb 15, 2017. Subjective Pt evaluation today including: conversation w/ patient, conversation w/ family , physical exam, chart review, lab review Pain: None PO Intake: Good Voiding: no voiding problems The patient was seen and examined this morning. Pt reports he's doing very well. 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 Pt was seen by pain management and plans are to do outpatient injection therapy starting this Wednesday. He is not a surgical candidate. Constitutional: No fever, No chills, No sweats Eyes: No redness, No diplopia ENT: No nasal symptoms, No trouble swallowing Respiratory: No cough, No shortness of breath Cardiovascular: No chest pain, No edema, No palpitations Abdomen: No pain, No nausea, No vomiting, No diarrhea, No constipation Musculoskeletal: + joint pain (currently left low back pain resolved), No swelling Neurologic: No weakness, No numbness/tingling, No balance problems Skin: No rash, No itch Objective Vital Signs Date Time Temp Pulse Resp B/P (MAP) Pulse Ox O2 Delivery O2 Flow Rate FiO2 02/15/17 07:25 Room Air 02/15/17 07:12 36.7 67 14 116/69 (85) 96 Room Air 02/15/17 00:00 Room Air 02/14/17 22:48 36.5 65 16 109/68 (82) 96 Room Air 02/14/17 18:38 36.4 63 16 121/72 (88) 95 Room Air 02/14/17 17:00 Room Air 02/14/17 15:24 36.2 53 16 120/85 (97) 94 Room Air 02/14/17 14:30 36.5 59 17 117/78 (91) 98 Room Air 02/14/17 13:33 36.4 55 18 121/74 (90) 96 Room Air 02/14/17 13:05 Room Air 02/14/17 12:41 36.6 60 18 130/73 (92) 94 Room Air 02/14/17 12:00 60 20 125/73 95 Room Air 02/14/17 11:19 87 20 125/73 97 Room Air Physical Exam General Appearance: WD/WN, no apparent distress Eyes: PERRL, EOMI ENT: hearing grossly normal, pharynx normal Neck: supple, no JVD Respiratory/Chest: lungs clear, normal breath sounds, no respiratory distress, no accessory muscle use Cardiovascular: regular rate, rhythm, no edema, no murmur Abdomen: normal bowel sounds, non tender, soft Extremities: non-tender, no pedal edema, no calf tenderness Neurologic/Psychiatric: alert, oriented x 3 Skin: normal color, warm/dry Assessment and Plan 46 yo M admitted with: Left L4-L5 herniated disk - Pain management consulted- lumbar transforaminal epidural steroid injection L4 -L5 on the left side- Fluoroscopy suite is not available today. Ultimately, he can be discharged on gabapentin, Medrol Dosepak and hydrocodone and have the procedure done as an outpatient. - Recommend gabapentin 300 minutes PO TID and hydrocodone 7.5 po Q6H prn - Spoke with Dr. Betancur at bedside, no plans for surgical intervention at this time - can follow with ortho on an outpt basis as needed. - discharge per primary team Thank you for allowing us to participate in the care of this patient.
[2017-02-15 12:16] VITALS: BP 122/72; PULSE 57; O2SAT 96
[2017-02-15] MEDS ORDERED: HYDROCODONE/ACETAMOPHEN 5/325MG TAB PO PRN (12:45)
[2017-02-15] MEDS ORDERED: METHYLPREDNISOLONE 4 MG TAB PO SCH ×3 (13:00→21:00)
[2017-02-15 13:44] VITALS: BP 122/72; PULSE 57; TEMP 36.7; O2SAT 96
[2017-02-15] MEDS ORDERED: METH4PAK PO (14:30)
--- NOTE | 2017-02-15 15:08 | Discharge Summary ---
Orthopedic Discharge Summary Admission Date/Reason Feb 14, 2017 at 11:16 Herniated Nucleus Pulposus Lumbar Spine. Discharge Date/Disposition Feb 15, 2017 Home Diagnosis Principal Diagnosis: Herniated nucleus pulposus L4 5 Admission Physical Exam As per Admitting History & Physical. Hospital Course Patient was admitted for acute pain controlled. We initiated steroids and pain medications. He seemed to improved substantially. Subsequently he's going to attempt outpatient epidural injections. The see him back in the office the next week or so. Discharge Instructions Please refer to the electronic Patient Visit Report (Discharge Instructions) for additional information.
[2017-02-16] MEDS ORDERED: METHYLPREDNISOLONE 4 MG TAB PO SCH ×2 (07:00→21:00)
[2017-02-17] MEDS ORDERED: METHYLPREDNISOLONE 4 MG TAB PO SCH (07:00)
[2017-02-18] MEDS ORDERED: METHYLPREDNISOLONE 4 MG TAB PO SCH (07:00)
[2017-02-19] MEDS ORDERED: METHYLPREDNISOLONE 4 MG TAB PO SCH (07:00)
[2017-02-20] MEDS ORDERED: METHYLPREDNISOLONE 4 MG TAB PO SCH (07:00)
== END 2017-02-15 15:10 | disposition home or self-care (01) ==
LOC: C.EDB 06:58 → C.MSN 11:16 → INTOOBSV 11:16 → ENRESERV 11:22
PROVIDERS: ADMIT Orthopaedic Surgery Orthopaedic Surgery of the Spine; ATTEND Orthopaedic Surgery Orthopaedic Surgery of the Spine
DX: M51.26 Other intervertebral disc displacement, lumbar region (principal); M54.16 Radiculopathy, lumbar region; M54.30 Sciatica, unspecified side; G89.29 Other chronic pain; I10 Essential (primary) hypertension; Z82.49 Family history of ischemic heart disease and other diseases of the circulatory system

== ENCOUNTER 2019-06-11 12:24 | Observation (INO) ==
[2019-06-11] MEDS ORDERED: MoRPHine SULFATE 4 MG/ML 1 ML CARP\\VIAL IV STA ×3 (12:35→14:11)
[2019-06-11] MEDS ORDERED: ONDANSETRON INJ 2 MG/ML 2 ML VIAL IV STA (12:42)
[2019-06-11] MEDS ORDERED: SODIUM CHLORIDE 0.9% 1000ML 1,000 ML IV SCH (12:45)
[2019-06-11 13:00] LABS: Hematocrit (blood only) 51.8 % (42-52); Hemoglobin 17.8 g/dL (14.0-18.0); Mean Corpuscular Hemoglobin 32.8 pg (25-34); Mean Corpuscular Hgb Conc 34.4 g/dL (32-36); Mean Corpuscular Volume 95.4 fL (80-100); Mean Platelet Volume 9.2 fL (7.4-10.4); Platelet Count 223 K/uL (130-400); RDW Coefficient of Variation 12.9 % (11.5-14.5); RDW Standard Deviation 45.3 fL (36.4-46.3); Red Blood Count 5.43 M/uL (4.7-6.1)
[2019-06-11] MEDS: NITROGLYCERIN SL 0.4 MG/TAB TAB SL PRN ×2 (13:05→13:11)
--- NOTE | 2019-06-11 13:05 | XRay Report ---
SINGLE VIEW CHEST CLINICAL HISTORY: Atypical chest pain. FINDINGS: An AP, portable, upright chest radiograph is compared to study dated 09/17/2018. The examina tion is degraded by portable technique and patient rotation. The cardiomediastinal silhouette is unr emarkable. There are low lung volumes with bibasilar atelectasis. The lungs and pleural spaces are ot herwise clear. No pneumothorax is seen. The bony thorax is grossly intact. IMPRESSION: Low lung volumes with no active disease in the chest. ACT 112: Negative or not required by law. Electronically signed by: Dmitriy Klein M.D. 06/11/2019 1:04 PM
[2019-06-11 13:11] LABS: Partial Thromboplastin Ratio 0.9; Partial Thromboplastin Time 23.9 Seconds (21.0-31.0); Prothrombin Time 9.8 Seconds (9.0-12.0)
[2019-06-11 13:12] LABS: Alanine Aminotransferase 32 U/L (12-78); Albumin Level 4.3 gm/dl (3.4-5.0); Aspartate Aminotransferase 14 U/L (15-37); BUN Creatinine Ratio 13.3 (10-20); Blood Urea Nitrogen 16 mg/dl (7-18); Calcium 9.5 mg/dl (8.5-10.1); Carbon Dioxide 28 mmol/L (21-32); Chloride 103 mmol/L (98-107); Creatinine Clr Calc Pharmacy 85.4 ml/min; Est GFR (African American) 78.6; Est GFR (Non-African American) 67.8; Glucose 122 mg/dl (70-99); Lipase 111 U/L (73-393); Potassium 4.5 mmol/L (3.5-5.1); Sodium 138 mmol/L (136-145)
[2019-06-11 13:17] LABS: Albumin Globulin Ratio 1.2 (0.9-2); Alkaline Phosphatase 64 U/L (45-117); Bilirubin,Total 0.6 mg/dl (0.2-1); Globulin 3.7 gm/dl (2.5-4.0); Troponin I < 0.015 ng/ml (0-0.045)
[2019-06-11] MEDS ORDERED: OPTIRAY 320 125ml IV PRN (13:27)
[2019-06-11 13:46] LABS: Basophils # (auto) 0.02 K/uL (0-0.2); Basophils % (auto) 0.1 %; Eosinophils # (auto) 0.06 K/uL (0-0.5); Eosinophils % (auto) 0.3 %; Immature Granulocytes # (auto) 0.08 K/uL (0.00-0.02); Immature Granulocytes % (auto) 0.4 %; Lymphocytes # (auto) 1.13 K/uL (1.2-3.4); Lymphocytes % (auto) 5.8 %; Monocytes # (auto) 0.39 K/uL (0.11-0.59); Neutrophils # (auto) 17.92 K/uL (1.4-6.5); Neutrophils % (auto) 91.4 %
[2019-06-11] MEDS ORDERED: ASPIRIN CHEW 324 MG PO STA (14:11)
--- NOTE | 2019-06-11 14:24 | CT Scan Report ---
CT ANGIOGRAM OF THE CHEST CLINICAL HISTORY: Atypical chest pain. COMPARISON STUDY: Chest x-ray dated 06/11/2019. TECHNIQUE: Following the IV administration of 118 cc of Optiray 320, CT angiogram of the chest was pe rformed from the upper abdomen to the thoracic inlet utilizing the pulmonary embolus protocol. Images are reviewed in the axial, sagittal, and coronal planes. 3-D MIPS images are created and assessed. I V contrast was administered without complication. A dose lowering technique was utilized adhering to the principles of ALARA. The examination is significantly compromised by motion artifact. CT DOSE: 567.65 mGy.cm FINDINGS: Thyroid: Imaged portions of the thyroid gland appear enlarged and heterogeneous in attenuation. Thoracic aorta: The thoracic aorta is normal in caliber and demonstrates standard 3-vessel arch anato my. No dissection is seen. Pulmonary vasculature: The pulmonary trunk is normal in caliber. There are no filling defects identif ied in main, lobar, or proximal segmental pulmonary branches to suggest pulmonary embolus. Evaluation of the peripheral branches is degraded by motion artifact and suboptimal contrast opacification. Thi s is greatest in the lower lobes. Heart: The heart is enlarged and without pericardial effusion. Lungs and pleural spaces: Evaluation of the lung parenchyma is significantly degraded by motion artif act. No airspace consolidation or pleural effusion is identified. There is dependent hypoventilatory change. The trachea and central airways are clear. Mediastinum: There is no mediastinal lymphadenopathy. Marci: Clear. Axillae: There is no axillary lymphadenopathy. Upper abdomen: There is a small hiatal hernia. The liver appears steatotic. Skeletal structures: No lytic or blastic bony lesions are seen. IMPRESSION: 1. Motion compromised examination. 2. There is no evidence of central pulmonary embolus in the main, lobar, or proximal segmental pulmon mercedes arteries. 3. Cardiomegaly. 4. There is no airspace consolidation or pleural effusion. ACT 112: Negative or not required by law. Electronically signed by: Dmitriy Klein M.D. 06/11/2019 2:23 PM
--- NOTE | 2019-06-11 15:29 | History & Physical Report ---
Date of Service June 11, 2019 Assessment & Plan (1) Chest pain: 48yo C male with FH of premature CAD presenting with acute onset left sided chest pain. EKG with no acute ischemic changes, troponin x 1 negative -Observation to PCU with continuous cardiac monitoring -Trend troponin q 6 hours x 3 -Check Lipids and A1C -EKG as needed for CP -Supplemental O2 to maintain saturation of 94% -Morphine as needed for CP -Nitro paste -ASA 81mg po daily -Echocardiogram in AM -Consider cardiology consultation, stress testing pending results Present on Admission?: Yes (2) Obstructive sleep apnea: Patient does not use CPAP at home -Encourage use Present on Admission?: Yes (3) Acid reflux: Chronic. -Maalox as needed Present on Admission?: Yes (4) Elevated blood-pressure reading without diagnosis of hypertension: In setting of acute stress and pain -Continue to monitor F/E/N - heplock. Monitor electrolytes and replete as needed, check Mg/PO4 x 1, Heart healthy diet, NPO after midnight for possible stress testing Ppx - Low risk for DVT Code - Full per discussion with patient Dispo - Observation to PCU for chest pain, rule out ACS Present on Admission?: Yes History of Present Illness Chief Complaint: chest pain Primary Care Provider: EMETERIO Dan Mr. Sibley is a pleasant 48yo C male with history of GERD presenting with left sided chest pain. Patient had acute onset of nausea and vomiting this morning followed by left sided chest pain with radiation to the back/neck and left arm, associated SOB/dizziness/diaphoresis also with some tingling in his left fingers. Pain described as squeezing, 8/10 in severity. Non-pleuritic/non- positional. Upon arrival to the ER he was found to be tachycardic at 114 bpm, hypertensive at 236/86. He was administered Morphine 4mg IV x 2 doses and Nitro x 2 with improvement in pain. He is presently still having chest discomfort, 3/10. Patient with no known history of heart disease, CAD/arrhythmia or CHF. No prior cardiac catheterizations. He did have an exercise stress test performed years ago that he reports being negative. +Family history of premature CAD - father with PA in his 40's ER Course: ASA 324mg, Morphine 4mg IV x 2 doses, Nitro x 2, Zofran, NSS x 1 L Allergies Allergy/AdvReac Type Severity Reaction Status Date / Time NSAIDS (Non-Steroidal AdvReac Unknown NO NSAIDS Verified 06/11/19 14:04 Anti-Inflamma PER DR WERNER AND [id number] ADM. tramadol AdvReac Unknown depression, Verified 06/11/19 14:04 anxiety Home Medications Home Medications Medication Instructions Recorded Confirmed Type acetaminophen [Tylenol Extra 500 mg PO Q6H PRN 09/17/18 06/11/19 History Strength] celecoxib 200 mg PO QAM 09/17/18 06/11/19 History cyclobenzaprine 10 mg PO HS 09/17/18 06/11/19 History tamsulosin 0.4 mg PO HS 09/17/18 06/11/19 History gabapentin 600 mg tablet 600 mg PO TID #90 tab 04/11/19 06/11/19 Rx acetaminophen-codeine 1 tab PO Q6H PRN 06/11/19 06/11/19 History ondansetron HCl [Zofran] 4 mg PO Q6H PRN 06/11/19 06/11/19 History Past Med/Surg History Surgical History H/O hernia repair (Chronic) right H/O laminectomy (Chronic) History of colon resection (Chronic) History of tonsillectomy and adenoidectomy (Chronic) Family History (Updated 06/11/19 @ 15:24 by Domonique Avery DO) Father Coronary heart disease Father with PA in his 40's Social History Preferred Language: Japanese Communication Ability: Effective Beliefs That Will Affect Care: None marital status: Current Living Situation: Spouse current occupational status: employed current occupation: [employer] Other Information That Helps Us Care for You: No Feels Safe at Home: Yes Smoking Status: Never smoker Hx Alcohol Use: Yes Alcohol type: beer Hx Substance Use: No Review of Systems Review of Systems: All systems reviewed & are unremarkable except as noted in HPI & below +Chills Physical Exam Physical Exam: General: patient resting, appears uncomfortable, NAD, non- toxic in appearance, AA&O x 4 Skin: warm, dry, intact, no rashes or lesions HEENT: NC/AT, PERRL, EOMI, anicteric sclera, conjunctiva without injection, external ear normal to inspection and nontender, nares patent, moist mucus membranes, dentition intact, no oropharyngeal lesions, neck supple, trachea midline, no LAD, no thyromegaly, no JVD Heart: +S1/S2, regular, tachycardic, no m/r/g Lungs: equal air entry bilaterally, no rales/rhonchi/wheezes Abd: +BS, soft, ND, mildly tender with deep palpation, no rebound/guarding/peritoneal signs, no masses/organomegaly/ascites Ext: warm, 2+ pulses in UE/LE bilaterally, no clubbing/cyanosis or edema Neuro: nonfocal, patient AA&O x 4, speech intact, no facial droop, moving all extremities on command with equal strength 5/5 Results & Data Vital Signs (Past 12 Hours) Vital Signs Temp Pulse Pulse Resp BP BP Pulse Ox 06/11/19 14:33 104 H 20 143/106 H 98 06/11/19 13:38 104 H 24 146/67 H 93 06/11/19 13:22 104 H 22 120/53 L 96 06/11/19 13:09 102 H 20 129/57 L 93 06/11/19 13:07 90 06/11/19 13:05 97 H 20 122/64 95 06/11/19 12:45 109 H 18 155/111 H 95 06/11/19 12:37 96 06/11/19 12:28 36.8 C 114 H 20 236/86 H 97 Laboratory Results Lab Results 06/11/19 06/11/19 06/11/19 Range/Units 12:50 12:50 12:50 WBC 19.60 H (4.8-10.8) K/uL RBC 5.43 (4.7-6.1) M/uL Hgb 17.8 (14.0-18.0) g/dL Hct 51.8 (42-52) % MCV 95.4 (80-100) fL MCH 32.8 (25-34) pg MCHC 34.4 (32-36) g/dL RDW Std Deviation 45.3 (36.4-46.3) fL RDW Coeff of Kaye 12.9 (11.5-14.5) % Plt Count 223 (130-400) K/uL MPV 9.2 (7.4-10.4) fL Immature Gran % (Auto) 0.4 % Neut % (Auto) 91.4 % Lymph % (Auto) 5.8 % [place] % (Auto) 2.0 % Eos % (Auto) 0.3 % Baso % (Auto) 0.1 % Immature Gran # (Auto) 0.08 H (0.00-0.02) K/uL Neut # (Auto) 17.92 H (1.4-6.5) K/uL Lymph # (Auto) 1.13 L (1.2-3.4) K/uL [place] # (Auto) 0.39 (0.11-0.59) K/uL Eos # (Auto) 0.06 (0-0.5) K/uL Baso # (Auto) 0.02 (0-0.2) K/uL PT 9.8 (9.0-12.0) Seconds INR 1.0 (0.9-1.1) APTT 23.9 (21.0-31.0) Seconds PTT Ratio 0.9 Sodium 138 (136-145) mmol/L Potassium 4.5 (3.5-5.1) mmol/L Chloride 103 (98-107) mmol/L Carbon Dioxide 28 (21-32) mmol/L Anion Gap 7.0 (3-11) BUN 16 (7-18) mg/dl Creatinine 1.24 (0.6-1.4) mg/dl Est Cr Clr Drug Dosing 85.4 ml/min Est GFR ( Amer) 78.6 Est GFR (Non-Af Amer) 67.8 BUN/Creatinine Ratio 13.3 (10-20) Glucose 122 H (70-99) mg/dl Calcium 9.5 (8.5-10.1) mg/dl Total Bilirubin 0.6 (0.2-1) mg/dl AST 14 L (15-37) U/L ALT 32 (12-78) U/L Alkaline Phosphatase 64 (45-117) U/L Troponin I < 0.015 (0-0.045) ng/ml Total Protein 8.0 (6.4-8.2) gm/dl Albumin 4.3 (3.4-5.0) gm/dl Globulin 3.7 (2.5-4.0) gm/dl Albumin/Globulin Ratio 1.2 (0.9-2) Lipase 111 (73-393) U/L Diagnostic Findings SINGLE VIEW CHEST CLINICAL HISTORY: Atypical chest pain. FINDINGS: An AP, portable, upright chest radiograph is compared to study dated 09/17/2018. The examination is degraded by portable technique and patient rotation. The cardiomediastinal silhouette is unremarkable. There are low lung volumes with bibasilar atelectasis. The lungs and pleural spaces are otherwise clear. No pneumothorax is seen. The bony thorax is grossly intact. IMPRESSION: Low lung volumes with no active disease in the chest. ACT 112: Negative or not required by law. Electronically signed by: Dmitriy Klein M.D. 06/11/2019 1:04 PM Dictated: 06/11/19 1303 Transcribed: 06/11/[address] ANGIOGRAM OF THE CHEST CLINICAL HISTORY: Atypical chest pain. COMPARISON STUDY: Chest x-ray dated 06/11/2019. TECHNIQUE: Following the IV administration of 118 cc of Optiray 320, CT angiogram of the chest was performed from the upper abdomen to the thoracic inlet utilizing the pulmonary embolus protocol. Images are reviewed in the axial, sagittal, and coronal planes. 3-D MIPS images are created and assessed. IV contrast was administered without complication. A dose lowering technique was utilized adhering to the principles of ALARA. The examination is significantly compromised by motion artifact. CT DOSE: 567.65 mGy.cm FINDINGS: Thyroid: Imaged portions of the thyroid gland appear enlarged and heterogeneous in attenuation. Thoracic aorta: The thoracic aorta is normal in caliber and demonstrates standard 3-vessel arch anatomy. No dissection is seen. Pulmonary vasculature: The pulmonary trunk is normal in caliber. There are no filling defects identified in main, lobar, or proximal segmental pulmonary branches to suggest pulmonary embolus. Evaluation of the peripheral branches is degraded by motion artifact and suboptimal contrast opacification. This is greatest in the lower lobes. Heart: The heart is enlarged and without pericardial effusion. Lungs and pleural spaces: Evaluation of the lung parenchyma is significantly degraded by motion artifact. No airspace consolidation or pleural effusion is identified. There is dependent hypoventilatory change. The trachea and central airways are clear. Mediastinum: There is no mediastinal lymphadenopathy. Marci: Clear. Axillae: There is no axillary lymphadenopathy. Upper abdomen: There is a small hiatal hernia. The liver appears steatotic. Skeletal structures: No lytic or blastic bony lesions are seen. IMPRESSION: 1. Motion compromised examination. 2. There is no evidence of central pulmonary embolus in the main, lobar, or proximal segmental pulmonary arteries. 3. Cardiomegaly. 4. There is no airspace consolidation or pleural effusion. ACT 112: Negative or not required by law. Electronically signed by: Dmitriy Klein M.D. 06/11/2019 2:23 PM ECG Additional Comments: EKG with NSR at 88 bpm, normal axis, XZ=304, QRS=80, LMq=684. No acute ischemic changes Code Status & VTE Plan Code Status Full code VTE Prophylaxis Plan VTE Prophylaxis will be ordered: No PG Care Time/CCT Total # of Minutes Spent Total Time Spent with Patient: Total time spent is greater than 50% in coordination of care (as documented) at patient's floor/unit and/or counseling patient: Coding Level of Care Code 54093 OBS Care - Level 3 Diagnoses Chest pain R07.9 Chest pain type: unspecified Obstructive sleep apnea G47.33 Acid reflux K21.9 Esophagitis presence: esophagitis presence not specified Elevated blood-pressure reading without diagnosis of hypertension R03.0 (1) Chest pain Chest pain type: unspecified Qualified Code(s): R07.9 - Chest pain, unspecified (2) Acid reflux Esophagitis presence: esophagitis presence not specified Qualified Code(s): K21.9 - Gastro-esophageal reflux disease without esophagitis
[2019-06-11] MEDS ORDERED: DOCUSATE SODIUM 100 MG CAP PO PRN (16:22)
[2019-06-11] MEDS ORDERED: POLYETHYLENE (MIRALAX) 17 GM PACK PO PRN (16:22)
[2019-06-11] MEDS ORDERED: ALUMINUM/MAGNESIUM SUSP 30 ML UDC PO PRN (16:22)
[2019-06-11] MEDS: ONDANSETRON INJ 2 MG/ML 2 ML VIAL IV PRN ×2 (17:08→23:06)
--- NOTE | 2019-06-11 17:22 | Emergency Department Note ---
Entered by Mira Carr acting as a scribe for History of Present Illness General Chief complaint: Chest Pain Time Seen by Provider: 06/11/19 12:33 Source: patient and family Mode of arrival: ambulatory Limitations: no limitations History of Present Illness Onset (ago): hour(s) 3 Location: chest Radiation: non-radiation Pain Consistency: + constant Maximum Pain Intensity: 8 Current Pain Intensity: 8 Quality: + stabbing Relieved By: + none Exacerbated By: + none The patient is a 48 year old white male w/ PMHx of GERD, kidney stones and osteoarthritis who presents to the ED w/ CC of chest pain beginning about 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 He states the pain feels like a "stabbing" pain. He notes he went to work this morning but got very sick and started vomiting. He came home, and his gave him anti-nausea medication, but it provided no relief. The patients father has a history of heart disease in the 40s. The patient denies swelling of calves, recent trips, history of immobilization or recent surgery, prior h istory of DVT, hemoptysis, history of malignancy, or history of smoking. Home Medications Home Medications Medication Instructions Recorded Confirmed Type acetaminophen [Tylenol Extra 500 mg PO Q6H PRN 09/17/18 06/11/19 History Strength] celecoxib 200 mg PO QAM 09/17/18 06/11/19 History cyclobenzaprine 10 mg PO HS 09/17/18 06/11/19 History tamsulosin 0.4 mg PO HS 09/17/18 06/11/19 History gabapentin 600 mg tablet 600 mg PO TID #90 tab 04/11/19 06/11/19 Rx acetaminophen-codeine 1 tab PO Q6H PRN 06/11/19 06/11/19 History ondansetron HCl [Zofran] 4 mg PO Q6H PRN 06/11/19 06/11/19 History Allergies Allergy/AdvReac Type Severity Reaction Status Date / Time NSAIDS (Non-Steroidal AdvReac Unknown NO NSAIDS Verified 06/11/19 14:04 Anti-Inflamma PER DR WERNER AND [id number] ADM. tramadol AdvReac Unknown depression, Verified 06/11/19 14:04 anxiety Past Med/Surg History Surgical History H/O hernia repair (Chronic) right H/O laminectomy (Chronic) History of colon resection (Chronic) History of tonsillectomy and adenoidectomy (Chronic) Family History (Updated 06/11/19 @ 15:24 by Domonique Avery DO) Father Coronary heart disease Father with DC in his 40's Social History Preferred Language: Georgian Communication Ability: Effective Beliefs That Will Affect Care: None marital status: Current Living Situation: Spouse current occupational status: employed current occupation: [employer] Feels Safe at Home: Yes Smoking Status: Never smoker Hx Alcohol Use: Yes Alcohol type: beer Hx Substance Use: No Review of Systems See HPI for pertinent positives & negatives. and A total of 10 systems reviewed and were otherwise negative Physical Exam Vital Signs Vital Signs - 24 hr 06/11/19 12:28 06/11/19 12:36 06/11/19 12:37 Temperature 36.8 C Temperature Source Oral Pulse Rate 114 H 115 H Pulse Rate [Finger] Pulse Rate from SpO2 Sensor 115 H Respiratory Rate 20 22 Respiratory Effort / Characteristics Spontaneous Short of Breath Respiratory Depth Normal Blood Pressure 236/86 H 155/111 H Blood Pressure [Right Arm] Blood Pressure Mean 136 134 Blood Pressure Mean [Right Arm] Blood Pressure Position Lying Pulse Oximetry 97 97 96 Oxygen Delivery Method Room Air Room Air Oxygen Flow Rate Sepsis Recent Fever Within 48 Hours No Sepsis New/Unexplained Change in Mental Status No Sepsis Action Taken by Nursing No Action Required Pulse Oximetry Post Tiitration 06/11/19 12:40 06/11/19 12:45 06/11/19 12:54 Temperature Temperature Source Pulse Rate 115 H 113 H Pulse Rate [Finger] 109 H Pulse Rate from SpO2 Sensor 114 H 112 H Respiratory Rate 21 18 23 Respiratory Effort / Characteristics Respiratory Depth Blood Pressure 150/90 H Blood Pressure [Right Arm] 155/111 H Blood Pressure Mean 107 Blood Pressure Mean [Right Arm] 125 Blood Pressure Position Pulse Oximetry 96 95 95 Oxygen Delivery Method Room Air Oxygen Flow Rate Sepsis Recent Fever Within 48 Hours Sepsis New/Unexplained Change in Mental Status Sepsis Action Taken by Nursing Pulse Oximetry Post Tiitration 06/11/19 13:00 06/11/19 13:01 06/11/19 13:03 Temperature Temperature Source Pulse Rate 86 93 H 102 H Pulse Rate [Finger] Pulse Rate from SpO2 Sensor 86 91 H 103 H Respiratory Rate 21 22 16 Respiratory Effort / Characteristics Respiratory Depth Blood Pressure 80/49 L 122/64 Blood Pressure [Right Arm] Blood Pressure Mean 60 83 Blood Pressure Mean [Right Arm] Blood Pressure Position Pulse Oximetry 94 96 93 Oxygen Delivery Method Oxygen Flow Rate Sepsis Recent Fever Within 48 Hours Sepsis New/Unexplained Change in Mental Status Sepsis Action Taken by Nursing Pulse Oximetry Post Tiitration 06/11/19 13:04 06/11/19 13:05 06/11/19 13:07 Temperature Temperature Source Pulse Rate 107 H Pulse Rate [Finger] 97 H Pulse Rate from SpO2 Sensor 105 H Respiratory Rate 16 20 Respiratory Effort / Characteristics Respiratory Depth Blood Pressure 113/63 Blood Pressure [Right Arm] 122/64 Blood Pressure Mean 83 Blood Pressure Mean [Right Arm] 83 Blood Pressure Position Pulse Oximetry 90 95 90 Oxygen Delivery Method Room Air Room Air Oxygen Flow Rate 2 Sepsis Recent Fever Within 48 Hours Sepsis New/Unexplained Change in Mental Status Sepsis Action Taken by Nursing Pulse Oximetry Post Tiitration 06/11/19 13:08 06/11/19 13:09 06/11/19 13:10 Temperature Temperature Source Pulse Rate 98 H 98 H Pulse Rate [Finger] 102 H Pulse Rate from SpO2 Sensor 99 H 99 H Respiratory Rate 19 20 22 Respiratory Effort / Characteristics Respiratory Depth Blood Pressure 129/57 L 106/62 Blood Pressure [Right Arm] 129/57 L Blood Pressure Mean 72 80 Blood Pressure Mean [Right Arm] 81 Blood Pressure Position Pulse Oximetry 94 93 96 Oxygen Delivery Method Nasal Cannula Oxygen Flow Rate 2 Sepsis Recent Fever Within 48 Hours Sepsis New/Unexplained Change in Mental Status Sepsis Action Taken by Nursing Pulse Oximetry Post Tiitration 06/11/19 13:15 06/11/19 13:20 06/11/19 13:22 Temperature Temperature Source Pulse Rate 101 H 102 H Pulse Rate [Finger] 104 H Pulse Rate from SpO2 Sensor 100 H 102 H Respiratory Rate 21 24 22 Respiratory Effort / Characteristics Respiratory Depth Blood Pressure 97/57 L 120/53 L Blood Pressure [Right Arm] 120/53 L Blood Pressure Mean 68 71 Blood Pressure Mean [Right Arm] 75 Blood Pressure Position Pulse Oximetry 96 96 96 Oxygen Delivery Method Nasal Cannula Oxygen Flow Rate 2 Sepsis Recent Fever Within 48 Hours Sepsis New/Unexplained Change in Mental Status Sepsis Action Taken by Nursing Pulse Oximetry Post Tiitration 06/11/19 13:25 06/11/19 13:37 06/11/19 13:38 Temperature Temperature Source Pulse Rate 103 H 104 H Pulse Rate [Finger] 104 H Pulse Rate from SpO2 Sensor 103 H 104 H Respiratory Rate 23 15 22 Respiratory Effort / Characteristics Respiratory Depth Blood Pressure 122/60 146/67 H Blood Pressure [Right Arm] 146/67 H Blood Pressure Mean 73 78 Blood Pressure Mean [Right Arm] 93 Blood Pressure Position Pulse Oximetry 96 92 Oxygen Delivery Method Room Air Oxygen Flow Rate Sepsis Recent Fever Within 48 Hours Sepsis New/Unexplained Change in Mental Status Sepsis Action Taken by Nursing Pulse Oximetry Post Tiitration 06/11/19 14:00 06/11/19 14:01 06/11/19 14:30 Temperature Temperature Source Pulse Rate 103 H 102 H 103 H Pulse Rate [Finger] Pulse Rate from SpO2 Sensor 104 H 102 H 104 H Respiratory Rate 20 19 25 H Respiratory Effort / Characteristics Respiratory Depth Blood Pressure 113/77 143/106 H Blood Pressure [Right Arm] Blood Pressure Mean 92 124 Blood Pressure Mean [Right Arm] Blood Pressure Position Pulse Oximetry 97 97 96 Oxygen Delivery Method Oxygen Flow Rate Sepsis Recent Fever Within 48 Hours Sepsis New/Unexplained Change in Mental Status Sepsis Action Taken by Nursing Pulse Oximetry Post Tiitration 06/11/19 14:31 06/11/19 14:33 06/11/19 14:42 Temperature Temperature Source Pulse Rate 105 H 108 H Pulse Rate [Finger] 104 H Pulse Rate from SpO2 Sensor 107 H 108 H Respiratory Rate 29 H 20 17 Respiratory Effort / Characteristics Respiratory Depth Blood Pressure 158/89 H Blood Pressure [Right Arm] 143/106 H Blood Pressure Mean 94 Blood Pressure Mean [Right Arm] 118 Blood Pressure Position Pulse Oximetry 97 98 99 Oxygen Delivery Method Room Air Oxygen Flow Rate Sepsis Recent Fever Within 48 Hours Sepsis New/Unexplained Change in Mental Status Sepsis Action Taken by Nursing Pulse Oximetry Post Tiitration 06/11/19 15:00 06/11/19 15:01 Temperature Temperature Source Pulse Rate 108 H 109 H Pulse Rate [Finger] Pulse Rate from SpO2 Sensor 107 H 107 H Respiratory Rate 25 H 26 H Respiratory Effort / Characteristics Respiratory Depth Blood Pressure 128/104 H Blood Pressure [Right Arm] Blood Pressure Mean 110 Blood Pressure Mean [Right Arm] Blood Pressure Position Pulse Oximetry 100 95 Oxygen Delivery Method Oxygen Flow Rate Sepsis Recent Fever Within 48 Hours Sepsis New/Unexplained Change in Mental Status Sepsis Action Taken by Nursing Pulse Oximetry Post Tiitration GENERAL: Patient is in moderate distress, in pain, well nourished. EYE EXAM: Normal conjunctiva. PERRL, no anisocoria and EOM's grossly intact w/o pain. OROPHARYNX: Moist mucous membranes. Grossly normal dentition. NECK: Supple, no nuchal rigidity, no adenopathy, non-tender. No signs of meningismus. LUNGS: Clear to auscultation. Normal chest wall mechanics. HEART: NSR, no MRG. ABDOMEN: Abdomen soft, non-tender, normo-active bowel sounds, no masses, no rebound or guarding. SKIN: No rashes and no bruising. UPPER EXTREMITIES: Upper extremities are grossly normal. LOWER EXTREMITIES: No pitting edema. No calf pain. Negative Nancy's sign. NEURO EXAM: A&O x3, cranial nerves II-XII grossly intact, normal speech, moves all 4 extremities on command w/o issue. Course Course 1239: The patient was evaluated in room B7 and a complete history and physical were performed. 1245: His BP in the room is 155/111. 1447: I discussed the patients case with Dr. Avery, [facility] Hospitalist. The patient will be further evaluated. 1450: I reevaluated the patient. He is resting. I discussed his results and my recommendation he remain in the hospital for further evaluation and management and he is agreeable with the plan. Administered Medications Ioversol (Optiray 320 125ml) 118 ml IV ONCE PRN PRN Reason: Interaction Checking Stop: 06/15/19 13:26 Last Admin: 06/11/19 13:27 Dose: 118 ml Documented by: [id number] Ondansetron HCl (Zofran) 4 mg IV Q6H PRN PRN Reason: Nausea Stop: 07/11/19 16:21 Last Admin: 06/11/19 17:08 Dose: 4 mg Documented by: [id number] Discontinued Medications Aspirin (Aspirin) 324 mg PO NOW STA Stop: 06/11/19 14:12 Last Admin: 06/11/19 14:39 Dose: 324 mg Documented by: [id number] Sodium Chloride (Nss 1000ml) 1,000 mls @ 999 mls/hr IV .Q1H1M CHRISTIANO Stop: 06/11/19 13:45 Last Infusion: 06/11/19 13:30 Dose: 0 mls/hr Documented by: [id number] Admin: 06/11/19 12:48 Dose: 999 mls/hr Documented by: [id number] Morphine Sulfate (Morphine Sulfate) 4 mg IV NOW STA Stop: 06/11/19 12:36 Last Admin: 06/11/19 12:46 Dose: 4 mg Documented by: [id number] Morphine Sulfate (Morphine Sulfate) 4 mg IV NOW STA Stop: 06/11/19 12:43 Last Admin: 06/11/19 14:39 Dose: 4 mg Documented by: [id number] Morphine Sulfate (Morphine Sulfate) 4 mg IV NOW STA Stop: 06/11/19 14:12 Last Admin: 06/11/19 16:26 Dose: Not Given Documented by: [id number] Nitroglycerin (Nitrostat) 0.4 mg SL PRN PRN PRN Reason: Chest Pain Stop: 07/11/19 12:41 Last Admin: 06/11/19 13:11 Dose: 0.4 mg Documented by: [id number] Admin: 06/11/19 13:05 Dose: 0.4 mg Documented by: [id number] Ondansetron HCl (Zofran) 4 mg IV NOW STA Stop: 06/11/19 12:43 Last Admin: 06/11/19 12:48 Dose: 4 mg Documented by: [id number] Medical Decision Making Differential Diagnosis Differential diagnoses includes but is not limited to acute coronary syndrome, myocardial infarction, pericarditis, pulmonary embolus, aortic dissection, pneumonia, pneumothorax, musculoskeletal, shingles, esophageal. Medical Records Attestation: I reviewed the patient's medical records. Home Medications Current Medication List: was personally reviewed by me Laboratory Data Attestation: I reviewed the patient's lab results. Result diagrams: 06/11/19 12:50 06/11/19 12:50 Lab Results 06/11/19 06/11/19 06/11/19 Range/Units 12:50 12:50 12:50 WBC 19.60 H (4.8-10.8) K/uL RBC 5.43 (4.7-6.1) M/uL Hgb 17.8 (14.0-18.0) g/dL Hct 51.8 (42-52) % MCV 95.4 (80-100) fL MCH 32.8 (25-34) pg MCHC 34.4 (32-36) g/dL RDW Std Deviation 45.3 (36.4-46.3) fL RDW Coeff of Kaye 12.9 (11.5-14.5) % Plt Count 223 (130-400) K/uL MPV 9.2 (7.4-10.4) fL Immature Gran % (Auto) 0.4 % Neut % (Auto) 91.4 % Lymph % (Auto) 5.8 % Callahan % (Auto) 2.0 % Eos % (Auto) 0.3 % Baso % (Auto) 0.1 % Immature Gran # (Auto) 0.08 H (0.00-0.02) K/uL Neut # (Auto) 17.92 H (1.4-6.5) K/uL Lymph # (Auto) 1.13 L (1.2-3.4) K/uL Callahan # (Auto) 0.39 (0.11-0.59) K/uL Eos # (Auto) 0.06 (0-0.5) K/uL Baso # (Auto) 0.02 (0-0.2) K/uL PT 9.8 (9.0-12.0) Seconds INR 1.0 (0.9-1.1) APTT 23.9 (21.0-31.0) Seconds PTT Ratio 0.9 Sodium 138 (136-145) mmol/L Potassium 4.5 (3.5-5.1) mmol/L Chloride 103 (98-107) mmol/L Carbon Dioxide 28 (21-32) mmol/L Anion Gap 7.0 (3-11) BUN 16 (7-18) mg/dl Creatinine 1.24 (0.6-1.4) mg/dl Est Cr Clr Drug Dosing 85.4 ml/min Est GFR ( Amer) 78.6 Est GFR (Non-Af Amer) 67.8 BUN/Creatinine Ratio 13.3 (10-20) Glucose 122 H (70-99) mg/dl Calcium 9.5 (8.5-10.1) mg/dl Total Bilirubin 0.6 (0.2-1) mg/dl AST 14 L (15-37) U/L ALT 32 (12-78) U/L Alkaline Phosphatase 64 (45-117) U/L Troponin I < 0.015 (0-0.045) ng/ml Total Protein 8.0 (6.4-8.2) gm/dl Albumin 4.3 (3.4-5.0) gm/dl Globulin 3.7 (2.5-4.0) gm/dl Albumin/Globulin Ratio 1.2 (0.9-2) Lipase 111 (73-393) U/L Imaging Data Radiologist's Impression: Radiology results as stated below per my review and the radiologist's interpretation: SINGLE VIEW CHEST CLINICAL HISTORY: Atypical chest pain. FINDINGS: An AP, portable, upright chest radiograph is compared to study dated 09/17/2018. The examination is degraded by portable technique and patient rotation. The cardiomediastinal silhouette is unremarkable. There are low lung volumes with bibasilar atelectasis. The lungs and pleural spaces are otherwise clear. No pneumothorax is seen. The bony thorax is grossly intact. IMPRESSION: Low lung volumes with no active disease in the chest. ACT 112: Negative or not required by law. Electronically signed by: Dmitriy Klein M.D. 06/11/2019 1:[address] ANGIOGRAM OF THE CHEST CLINICAL HISTORY: Atypical chest pain. COMPARISON STUDY: Chest x-ray dated 06/11/2019. TECHNIQUE: Following the IV administration of 118 cc of Optiray 320, CT angiogram of the chest was performed from the upper abdomen to the thoracic inlet utilizing the pulmonary embolus protocol. Images are reviewed in the axial, sagittal, and coronal planes. 3-D MIPS images are created and assessed. IV contrast was administered without complication. A dose lowering technique was utilized adhering to the principles of ALARA. The examination is significantly compromised by motion artifact. CT DOSE: 567.65 mGy.cm FINDINGS: Thyroid: Imaged portions of the thyroid gland appear enlarged and heterogeneous in attenuation. Thoracic aorta: The thoracic aorta is normal in caliber and demonstrates standard 3-vessel arch anatomy. No dissection is seen. Pulmonary vasculature: The pulmonary trunk is normal in caliber. There are no filling defects identified in main, lobar, or proximal segmental pulmonary branches to suggest pulmonary embolus. Evaluation of the peripheral branches is degraded by motion artifact and suboptimal contrast opacification. This is greatest in the lower lobes. Heart: The heart is enlarged and without pericardial effusion. Lungs and pleural spaces: Evaluation of the lung parenchyma is significantly degraded by motion artifact. No airspace consolidation or pleural effusion is identified. There is dependent hypoventilatory change. The trachea and central airways are clear. Mediastinum: There is no mediastinal lymphadenopathy. Marci: Clear. Axillae: There is no axillary lymphadenopathy. Upper abdomen: There is a small hiatal hernia. The liver appears steatotic. Skeletal structures: No lytic or blastic bony lesions are seen. IMPRESSION: 1. Motion compromised examination. 2. There is no evidence of central pulmonary embolus in the main, lobar, or pro ximal segmental pulmonary arteries. 3. Cardiomegaly. 4. There is no airspace consolidation or pleural effusion. ACT 112: Negative or not required by law. Electronically signed by: Dmitriy Klein M.D. 06/11/2019 2:23 PM ECG Data Attestation: I personally reviewed and interpreted this ECG as follows: Indication: + chest pain Rate (beats per minute): 114 Rhythm: + sinus tachycardia ECG Huddy: + Normal ECG ST segments: + T-wave inversions (in lead 3) ECG Findings: + Other (Normal intervals, subtle elevation in V2, not present in V1 or V3) Additional Comments: 2nd EKG on 06/11/2019: Normal sinus rhythm, rate of 88, normal intervals, normal axis, subtle elevation still present in V2, not V1 or V3, TWI in lead 3. 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 Patient was seen and evaluated the bedside. The patient did present with chest pain that was pressure-like and feeling something was sitting on his chest. The patient did initially. Extremities. The patient was given nitro as the patient was initially hypertensive. The patient is tachycardic. No recent procedures. The patient did a blood work completed along with an EKG. Patient's EKG does show may be a subtle elevation in lead V2 but it is not in contiguous leads. Initial troponin is negative. The patient does have mild white count 19. The patient did have a CT Valorie of the chest which shows no evidence of obvious PE. The patient does have mild cardiomegaly and also no evidence of any focal consolidation. Also remarked the thoracic aorta is normal in size and caliber without dissection or aneurysm. Given the patient's history and physical exam the patient does have a heart score of 4 and I believe he would benefit from continued monitoring treatment and trending of his cardiac enzymes. I did speak the on-call hospitalist agreed to further evaluate treat the patient. The patient did receive some aspirin the patient was admitted to the medicine service. Impression & Plan Atypical chest pain, Tachycardia, Nausea Discharge Plan Visit Data *Final* Discharge Date/Time: 06/11/19 16:01 Chief Complaint: Chest Pain ED Provider: Jett Whitlock Discharge Problem: Atypical chest pain, Tachycardia, Nausea Patient Disposition: Admitted As Inpatient Discharge Instructions Interventions: ED Discharge Assessment Last Done: 06/11/19 16:01 The scribe's documentation has been prepared under my direction and personally reviewed by me in its entirety. I confirm that the note above accurately reflects all work, treatment, procedures, and medical decision making performed by me.
[2019-06-11] MEDS: NITROGLYCERIN 2% OINTMENT 30GM TUBE EXT SCH (18:26)
[2019-06-11] MEDS: MoRPHine SULFATE 2 MG/ML CARP IV PRN ×2 (19:53→22:33)
[2019-06-11] MEDS: GABAPENTIN 600 MG TAB PO SCH (20:58)
[2019-06-11] MEDS ORDERED: TAMSULOSIN HCL 0.4 MG CAP PO SCH (21:00)
--- NOTE | 2019-06-11 22:22 | Electrocardiogram Report ---
Test Reason : Blood Pressure : / mmHG Vent. Rate : 114 BPM Atrial Rate : 114 BPM P-R Int : 136 ms QRS Dur : 082 ms QT Int : 326 ms P-R-T Axes : 050 024 054 degrees QTc Int : 449 ms Sinus tachycardia Possible Left atrial enlargement Borderline ECG When compared with ECG of 17-SEP-2018 09:48, Vent. rate has increased BY 43 BPM T wave amplitude has decreased in Lateral leads Confirmed by Clinton Mcbride ([id number]) on 06/11/2019 10:22:52 PM Referred By: REFERRED SELF Confirmed By:Clinton Mcbride
--- NOTE | 2019-06-11 22:28 | Electrocardiogram Report ---
Test Reason : Blood Pressure : / mmHG Vent. Rate : 088 BPM Atrial Rate : 088 BPM P-R Int : 120 ms QRS Dur : 080 ms QT Int : 348 ms P-R-T Axes : 009 023 030 degrees QTc Int : 421 ms Normal sinus rhythm Normal ECG When compared with ECG of 11-JUN-2019 12:30, No significant change was found Confirmed by Clinton Mcbride ([id number]) on 06/11/2019 10:28:16 PM Referred By: REFERRED SELF Confirmed By:Clinton Mcbride
[2019-06-12] MEDS: NITROGLYCERIN 2% OINTMENT 30GM TUBE EXT SCH ×3 (01:02→12:29)
[2019-06-12 06:46] LABS: Estimated Average Glucose 120 mg/dl; Hemoglobin A1C 5.8 % (4.5-5.6)
[2019-06-12 07:07] LABS: Basophils # (auto) 0.01 K/uL (0-0.2); Basophils % (auto) 0.1 %; Eosinophils # (auto) 0.07 K/uL (0-0.5); Eosinophils % (auto) 0.6 %; Hematocrit (blood only) 42.4 % (42-52); Hemoglobin 14.2 g/dL (14.0-18.0); Immature Granulocytes # (auto) 0.05 K/uL (0.00-0.02); Immature Granulocytes % (auto) 0.4 %; Lymphocytes # (auto) 0.62 K/uL (1.2-3.4); Lymphocytes % (auto) 5.4 %; Mean Corpuscular Hemoglobin 32.2 pg (25-34); Mean Corpuscular Hgb Conc 33.5 g/dL (32-36); Mean Corpuscular Volume 96.1 fL (80-100); Monocytes # (auto) 1.08 K/uL (0.11-0.59); Monocytes % (auto) 9.4 %; Neutrophils # (auto) 9.65 K/uL (1.4-6.5); Neutrophils % (auto) 84.1 %; Platelet Count 221 K/uL (130-400); RDW Coefficient of Variation 13.3 % (11.5-14.5); RDW Standard Deviation 46.8 fL (36.4-46.3); Red Blood Count 4.41 M/uL (4.7-6.1); White Blood Count 11.48 K/uL (4.8-10.8)
[2019-06-12] MEDS: GABAPENTIN 600 MG TAB PO SCH ×2 (07:27→13:59)
[2019-06-12] MEDS: ONDANSETRON INJ 2 MG/ML 2 ML VIAL IV PRN (07:29)
[2019-06-12 07:34] LABS: BUN Creatinine Ratio 13.7 (10-20); Calcium 8.3 mg/dl (8.5-10.1); Est GFR (Non-African American) 75.9
[2019-06-12 07:37] LABS: Phosphorus 2.8 mg/dl (2.5-4.9)
[2019-06-12] MEDS: MoRPHine SULFATE 2 MG/ML CARP IV PRN (08:16)
[2019-06-12] MEDS ORDERED: ACETAMINOPHEN 325 MG TAB PO PRN (08:42)
[2019-06-12] MEDS ORDERED: ASPIRIN 81 MG ECTAB PO SCH (09:00)
[2019-06-12] MEDS ORDERED: OMEGA-3 (PURIFIED FISH OIL) 1 GM CAP PO SCH (09:00)
[2019-06-12] MEDS ORDERED: DOBUTamine HCL 12.5 MG/ML 20 ML VIAL IV ONE (10:17)
[2019-06-12] MEDS ORDERED: METOPROLOL TARTRATE 1 MG/ML VIAL IV ONE (10:17)
[2019-06-12] MEDS ORDERED: ATROPINE SULFATE 0.1 MG/ML 10ML SYR IV ONE (10:17)
[2019-06-12 10:59] LABS: Estimated Average Glucose 120 mg/dl; Hemoglobin A1C 5.8 % (4.5-5.6)
--- NOTE | 2019-06-12 12:00 | XCELERA ---
[id number] \\[id number]\PDF_Reports\[id number]}___[id number]
--- NOTE | 2019-06-12 12:05 | XCELERA ---
[id number] \\[facility]\PDF_Reports\[id number]}___[id number]
--- NOTE | 2019-06-12 12:28 | Hospitalist Progress Note ---
Date of Service June 12, 2019 Assessment & Plan (1) Chest pain: Patient passed the echo stress test. All his troponins are negative and EKG shows normal sinus rhythm without any changes. Patient admits that his chest pain is actually not in his chest than in his left side of his neck. He also reports having lower back pain and requested to be seen by orthopedics. Appointment with Dr. Olmstead is scheduled for June 16 at 8:30 AM. Patient is going to see Dr. Olmstead in his office Patient has prediabetes with A1c of 5.8, he was advised to try to lose weight, dietary changes including lifestyle changes and exercises. Patient is started on atorvastatin 40 mg p.o. nightly and aspirin 81 mg p.o. daily. (2) Obstructive sleep apnea: Patient does not use CPAP at home -Encourage use (3) Acid reflux: Chronic. -Maalox as needed (4) Elevated blood-pressure reading without diagnosis of hypertension: In setting of acute stress and pain -Continue to monitor F/E/N - heplock. Monitor electrolytes and replete as needed, check Mg/PO4 x 1, Heart healthy diet, NPO after midnight for possible stress testing Ppx - Low risk for DVT Code - Full per discussion with patient Dispo - Observation to PCU for chest pain, rule out ACS Subjective Patient is seen and examined at the bedside. Patient reports that he has a neck pain rather than chest pain. Echocardiogram stress is done and patient passed the test. There is no concern of cardiac issue at this time. P.o. intake is good. Patient admits that he has lower back pain as well as neck pain and wants to be referred to orthopedic. Patient denies fever, chills, chest pain, shortness of breath, abdominal pain, frequency, urgency. All his troponins are negative. His EKG shows normal sinus rhythm without any changes. Review of Systems Review of Systems: All systems reviewed & are unremarkable except as noted in HPI & below Physical Exam Constitutional: WD/WN, vitals as above well developed Eyes: PERRL, conjunctivae normal, anicteric sclerae ENMT: external ear and nose normal, oropharynx normal Neck: trachea midline, no thyromegaly Respiratory: normal respiratory effort, lungs clear to auscultation Cardiovascular: RRR, no murmur, no edema Gastrointestinal (Abdomen): normal bowel sounds, soft, nontender, no hepatosplenomegaly Musculoskeletal: no cyanosis or clubbing, extremities motor strength 5/5 Skin: no rashes, warm and dry Neurologic: patellar DTR's 2+ bilat, sensation intact Psychiatric: A+Ox3, euthymic affect Lymphatic: no cervical or axillary lymphadenopathy Results & Data ([facility]) Vital Signs (Past 12 Hours) Vital Signs Temp Pulse Resp BP Pulse Ox 06/12/19 11:36 36.7 C 84 19 115/75 95 06/12/19 08:17 36.6 C 95 H 20 123/69 94 06/12/19 07:25 36.7 C 94 H 19 132/75 93 06/12/19 02:56 36.9 C 92 H 18 127/76 96 PG Care Time/CCT Total # of Minutes Spent Total Time Spent with Patient: Total time spent is greater than 50% in coordination of care (as documented) at patient's floor/unit and/or counseling patient: Coding Level of Care Code 07852 Subseq Hosp Care Lvl 3 Diagnoses Chest pain R07.9 Chest pain type: unspecified Obstructive sleep apnea G47.33 Acid reflux K21.9 Esophagitis presence: esophagitis presence not specified Elevated blood-pressure reading without diagnosis of hypertension R03.0 (1) Acid reflux Esophagitis presence: esophagitis presence not specified Qualified Code(s): K21.9 - Gastro-esophageal reflux disease without esophagitis (2) Chest pain Chest pain type: unspecified Qualified Code(s): R07.9 - Chest pain, unspecified
--- NOTE | 2019-06-12 12:40 | Electrocardiogram Report ---
Test Reason : Blood Pressure : / mmHG Vent. Rate : 129 BPM Atrial Rate : 129 BPM P-R Int : 144 ms QRS Dur : 084 ms QT Int : 290 ms P-R-T Axes : 035 007 035 degrees QTc Int : 424 ms Sinus tachycardia Nonspecific T wave abnormality Abnormal ECG When compared with ECG of 11-JUN-2019 12:58, Nonspecific T wave abnormality now evident in Anterolateral leads Confirmed by Lakhwinder Green ([id number]) on 06/12/2019 12:39:41 PM Referred By: REFERRED SELF Confirmed By:Lakhwinder Green
[2019-06-12] MEDS ORDERED: ATORVASTATIN 40 MG TAB PO SCH (13:00)
--- NOTE | 2019-06-12 14:56 | Electrocardiogram Report ---
Test Reason : Blood Pressure : / mmHG Vent. Rate : 084 BPM Atrial Rate : 084 BPM P-R Int : 130 ms QRS Dur : 092 ms QT Int : 368 ms P-R-T Axes : 029 010 019 degrees QTc Int : 434 ms Normal sinus rhythm RSR' or QR pattern in V1 suggests right ventricular conduction delay Normal ECG When compared with ECG of 11-JUN-2019 19:51, Vent. rate has decreased BY 45 BPM Nonspecific T wave abnormality no longer evident in Anterior leads Confirmed by Lakhwinder Green ([id number]) on 06/12/2019 2:56:14 PM Referred By: REFERRED SELF Confirmed By:Lakhwinder Green
--- NOTE | 2019-06-12 18:52 | Discharge Summary ---
Date of Service June 12, 2019 Admission HPI Per Admitting Provider Mr. Sibley is a pleasant 48yo C male with history of GERD presenting with left sided chest pain. Patient had acute onset of nausea and vomiting this morning followed by left sided chest pain with radiation to the back/neck and left arm, associated SOB/dizziness/diaphoresis also with some tingling in his left fingers. Pain described as squeezing, 8/10 in severity. Non-pleuritic/non-positional. Upon arrival to the ER he was found to be tachycardic at 114 bpm, hypertensive at 236/86. He was administered Morphine 4mg IV x 2 doses and Nitro x 2 with improvement in pain. He is presently still having chest discomfort, 3/10. Patient with no known history of heart disease, CAD/arrhythmia or CHF. No prior cardiac catheterizations. He did have an exercise stress test performed years ago that he reports being negative. +Family history of premature CAD - father with LA in his 40's ER Course: ASA 324mg, Morphine 4mg IV x 2 doses, Nitro x 2, Zofran, NSS x 1 L Principal Diagnosis none Discharge Exam Constitutional WD/WN, vitals as above well developed Eyes PERRL, conjunctivae normal, anicteric sclerae ENMT external ear and nose normal, oropharynx normal Neck trachea midline, no thyromegaly Respiratory normal respiratory effort, lungs clear to auscultation Cardiovascular RRR, no murmur, no edema Gastrointestinal (Abdomen) normal bowel sounds, soft, nontender, no hepatosplenomegaly Musculoskeletal no cyanosis or clubbing, extremities motor strength 5/5 Skin no rashes, warm and dry Neurologic patellar DTR's 2+ bilat, sensation intact Psychiatric A+Ox3, euthymic affect Lymphatic no cervical or axillary lymphadenopathy Discharge Data Allergies Allergy/AdvReac Type Severity Reaction Status Date / Time NSAIDS (Non-Steroidal AdvReac Unknown NO NSAIDS Verified 06/11/19 14:04 Anti-Inflamma PER DR WERNER AND [id number] ADM. tramadol AdvReac Unknown depression, Verified 06/11/19 14:04 anxiety Consultations 06/11/19 14:48 ED Decision to Admit Stat Ordered Studies 06/11/19 12:54 CT angio chest PE protocol Stat Hospital Course (1) Chest pain: Patient passed the echo stress test. All his troponins are negative and EKG shows normal sinus rhythm without any changes. Patient admits that his chest pain is actually not in his chest than in his left side of his neck. He also reports having lower back pain and requested to be seen by orthopedics. Appointment with Dr. Olmstead is scheduled for June 16 at 8:30 AM. Patient is going to see Dr. Olmstead in his office Patient has prediabetes with A1c of 5.8, he was advised to try to lose weight, dietary changes including lifestyle changes and exercises. Patient is started on atorvastatin 40 mg p.o. nightly and aspirin 81 mg p.o. daily. (2) Obstructive sleep apnea: Patient does not use CPAP at home -Encourage use (3) Acid reflux: Chronic. -Maalox as needed (4) Elevated blood-pressure reading without diagnosis of hypertension: In setting of acute stress and pain -Continue to monitor F/E/N - heplock. Monitor electrolytes and replete as needed, check Mg/PO4 x 1, Heart healthy diet, NPO after midnight for possible stress testing Ppx - Low risk for DVT Code - Full per discussion with patient Dispo - Observation to PCU for chest pain, rule out ACS Total Time Total Time Spent Total Time Spent (In Minutes): over 30 min Discharge Plan Discharge Items Patient Disposition: Home - Self-Care Reason For Visit: CHEST PAIN Discharge Diagnosis: Lower back pain Condition on Discharge: Good Activity: Resume your previous activity Non-emergency contact: Primary Care Provider and Surgeon Call non-emergency contact if: you have any medication questions, your symptoms worsen, your pain is not controlled, your pain is worsening, your pain is unusual for you, your pain is concerning for you and your temperature is above 101 Follow-up/Referrals: Yesika Wells CRNP [Primary Care Provider] - Diet: Heart Healthy Addtl Attending Provider Instructions: Please follow-up with primary care physician within 7 days. Follow-up with orthopedic spine on Wednesday at 8:30 AM on 06/16/2019 at [address] [facility], [place] [address].We started you on Atorvastatin 40 mg PO QHS, Aspirin 81 mg PO daily, and Fish oil 1000 mg PO daily. Pending Studies at Discharge: Yes Stand-Alone Forms: My [facility], Smoking Cessation Medications and DC Order Prescriptions: New atorvastatin 40 mg Tablet 40 mg PO HS Qty: 30 RF: 0 aspirin [Ecotrin Low Strength] 81 mg Tablet,Delayed Release (Dr/Ec) 81 mg PO QAM Qty: 30 RF: 0 docusate sodium 100 mg Capsule 100 mg PO BID PRN (Reason: constipation) Qty: 60 RF: 0 Fish Oil 340-1,000 mg Capsule 1 g PO BID Qty: 60 RF: 0 lidocaine 5 % adhesive patch,medicated 1 patch TOP DAILY Qty: 15 RF: 0 Continued gabapentin 600 mg tablet 600 mg PO TID Qty: 90 RF: 2 ondansetron HCl [Zofran] 4 mg Tablet 4 mg PO Q6H PRN (Reason: Nausea) RF: 0 acetaminophen-codeine 300-30 mg tablet 1 tab PO Q6H PRN (Reason: Pain) Qty: 10 RF: 0 cyclobenzaprine 5 mg tablet 10 mg PO HS Qty: 10 RF: 0 celecoxib 200 mg capsule 200 mg PO QAM RF: 0 acetaminophen [Tylenol Extra Strength] 500 mg Tablet 500 mg PO Q6H PRN (Reason: Pain) RF: 0 tamsulosin 0.4 mg capsule 0.4 mg PO HS RF: 0 Discharge Orders: Discharge Order (Routine); Ordered 06/12/19 Ordered By: Zohaib Logan Admission Data Admit Date/Time: 06/11/19 15:16 Attending Provider: Zohaib Logan Admit Provider: Domonique Avery Primary Care Provider: Yesika Wells Other Providers: Domonique Avery Other Interventions: Discharge Summary Assessment (RN) Last Done: 06/12/19 15:37 DC Date/Time DO NOT enter until pt leaves facility: 06/12/19 16:37 Coding Level of Care Code D/C Day Management >30 mins Diagnoses Chest pain R07.9 Chest pain type: unspecified Obstructive sleep apnea G47.33 Acid reflux K21.9 Esophagitis presence: esophagitis presence not specified Elevated blood-pressure reading without diagnosis of hypertension R03.0
== END 2019-06-12 16:37 | disposition home or self-care (01) ==
LOC: 2S 12:24 → ED 12:24 → SUATTDRO 15:16 → 2S 16:01